=== PATIENT | female | born 1935 | race Caucasian/White ===

== ENCOUNTER 2018-08-25 08:45 | Inpatient (IN) ==
--- NOTE | 2018-08-25 09:07 | Diag Imaging Result Doc PS360 ---
EXAM: CT HEAD W/O CONTRAST 08/25/2018 HISTORY: stroke like symptoms TECHNIQUE: This exam was performed using automated exposure control, adjustment of mA or kV according to patient size, and/or use of iterative reconstruction technique. COMMENT: There are patchy periventricular and subcortical white matter lucencies present bilaterally. There are multiple lacunar lucencies present throughout both basal ganglia and thalami. There is mild generalized cerebral atrophy. There is calcification in the left vertebral artery and both internal carotid arteries. There is no evidence of mass effect, bleed, or abnormal extra-axial fluid collection. Compared to the previous study of 04/13/2018 performed at [facility], there has been no appreciable change. The visualized paranasal sinuses are clear. The calvarium is intact. IMPRESSION: Extensive chronic microvascular ischemic change. No evidence of acute intracranial disease. Electronically signed by Zacarias Garcia 08/25/2018 9:05 AM
--- NOTE | 2018-08-25 09:37 | PROVIDER DOCUMENTATION ---
HPI-General Adult - General Chief Complaint: Stroke-Like Symptoms Stated Complaint: ams Time Seen by Provider: 08/25/18 09:16 Source: patient, family, care home records Allergies/Adverse Reactions: Patient Allergies Allergy/AdvReac Type Severity Reaction Status Date / Time Sulfa (Sulfonamide Allergy Unknown Verified 06/02/18 17:38 Antibiotics) Home Medications: Home Medication List Medication Instructions Recorded Confirmed Last Taken Type ATORVAstatin [Lipitor] 1 tab PO QHS 06/02/18 08/25/18 Unknown History Acetaminophen [Arthritis Pain] 1 tab PO Q4-6H PRN PRN 06/02/18 08/25/18 Unknown History Amlodipine Besylate 1 tab PO BID 06/02/18 08/25/18 Unknown History Escitalopram [Lexapro] 1 tab PO DAILY 06/02/18 08/25/18 Unknown History Lisinopril 1 tab PO DAILY 06/02/18 08/25/18 Unknown History Metoprolol Succinate E.r. [Toprol 1 tab PO DAILY 06/02/18 08/25/18 Unknown History Xl] Polyethylene Glycol 3350 17 g PO DAILY 06/02/18 08/25/18 Unknown History Hydrocodone/APAP 5 mg/325 mg 1 ea PO Q6H PRN PRN #20 tab 08/21/18 08/25/18 Unknown Rx [Junior-5] Loperamide [Imodium] 2 mg PO PRN PRN 08/25/18 08/25/18 Unknown History Ondansetron HCl [Zofran] 4 mg PO Q4-6H PRN PRN 08/25/18 08/25/18 Unknown History Pantoprazole [Protonix] 1 tab PO BID 08/25/18 08/25/18 Unknown History - History of Present Illness -Gen Adult Nature of Presenting Problems: 83 yo female pt who presents to the ED with via EMS from a local care home with stroke like symptoms. Her restorative care technician advised that when they woke her up this morning she was unresponsive, and could not answer questions, and could not follow commands. The pt has a hx of dementia and HTN. The pt also had a fall earlier this week and has a fx of the right humerus, and is on Junior for pain. pharmacy benefits coordinator advised that the last dose was at 2 am today. The pt denies having any pain and is alert and oriented x2 (current event, and location). She was unaware of the year and guessed it to be 2001. Her restorative care technician advised that her current level of cognition is her baseline, however it has rapidly improved. She denies having any compliant of SARGENT, neck pain, visual disturbances, CP, SOB, difficulty hearing, or other complaints. Review of Systems - Adult - REVIEW OF SYSTEMS - ADULT Constitutional: reports: no symptoms reported Eyes: reports: no symptoms reported Ears, Nose, Mouth & Throat: reports: no symptoms reported Cardiovascular: reports: no symptoms reported Respiratory: reports: no symptoms reported Gastrointestinal: reports: no symptoms reported Genitourinary: reports: no symptoms reported Musculoskeletal: reports: no symptoms reported Integumentary: reports: no symptoms reported Neurological: reports: see HPI Psychiatric: reports: see HPI Past History - Adult - PAST MEDICAL HISTORY-ADULT Review of Records: reports: Old Records Reviewed, Nursing Assessment Review, Medications Reviewed, Social history reviewed & non-contributory. Cardiovascular: reports: HTN - PRIOR SURGERIES/PROCEDURES Surgical/Procedure History: reports: hysterectomy - IMMUNIZATION STATUS Childhood Immunizations: See Nurse Assessment Flu Vaccine: See Nurse Assessment - FAMILY HISTORY Family History: reviewed, not pertinent - SOCIAL HISTORY Smoking: denies Physical Exam-General - PHYSICAL EXAM-ADULT Initial Vital Signs Reviewed: Yes - CONSTITUTIONAL General Appearance: slow to respond - EYES Eyes: PERRL/EOMI, pink conjunctivae - HEAD, EARS, NOSE, MOUTH & THROAT HENMT: normocephalic/atraumatic, moist mucous membranes, normal ENT inspection - NECK Neck: non-tender, full range of motion, supple - RESPIRATORY Respiratory: chest non-tender, lungs clear, normal breath sounds, no pleuratic chest pain, no respiratory distress - CARDIOVASCULAR Cardiovascular: normal peripheral pulses, regular rate, rhythm, no edema, no gallop, no JVD, no murmur - GASTROINTESTINAL (ABDOMEN) Abdominal Exam: normal bowel sounds, non tender, soft - MUSCULOSKELETAL Peripheral Pulses: radial (R): 2+, radial (L): 2+ - SKIN Integumentary: normal color, normal turgor, warm/dry - NEUROLOGIC Neurologic: abnormal cerebellar tests. negative: no motor/sensory deficits, facial droop Progress - PLAN OF CARE/RESULTS Progress/Plan/Lab Results: Vital Signs - 8 hr 08/25/18 08:56 Temperature 98.7 F Pulse Rate 80 Respiratory Rate 16 Blood Pressure 144/76 O2 Sat by Pulse Oximetry 93 L Orders Category Date Time Status Cardiac Monitoring DIRECTED Care 08/25/18 09:29 Active Finger Stick Blood Sugar (ED) DIRECTED Care 08/25/18 09:29 Active Oxygen Therapy- ED Nursing DIRECTED Care 08/25/18 09:29 Active Saline Loc NOW Care 08/25/18 09:29 Active CHEST-PORTABLE [RAD] Stat Exams 08/25/18 09:[address] HEAD W/O CONTRAST [CT] Stat Exams 08/25/18 08:39 Completed CBC WITH ELECTRONIC DIFF [HEME] Stat Lab 08/25/18 09:29 Uncollected COMPREHENSIVE METABOLIC PANEL [CHEM] Stat Lab 08/25/18 09:29 Uncollected PROTIME WITH INR [COAG] Stat Lab 08/25/18 09:29 Uncollected PTT [COAG] Stat Lab 08/25/18 09:29 Uncollected TROPONIN T Stat Lab 08/25/18 09:29 Uncollected URINALYSIS W/POSS RFLX CULT [URINALYSIS] Stat Lab 08/25/18 09:29 Uncollected EKG [EKG] Stat Ther 08/25/18 09:29 Ordered The pt had rapid significant improvement in her symptoms, however with her symptomology I feel that it would be pertinent to admit the patient for observation. The hospitalist was consulted and agreed to admit the pt. I discussed this with the pt and her brother and they agreed to the plan. Result Diagrams: 08/25/18 09:30 08/25/18 09:30 Departure - Departure Date of Disposition Decision: 08/25/18 Time of Disposition Decision: 11:48 DIAGNOSIS: Stroke-like symptom, TIA (transient ischemic attack) Disposition: ADMITTED INPATIENT 09 Certified Medical Emergency: Emergent Condition: Stable - Critical Care Note This patient required my direct & personal management of CC.: No Attestation - Physician/ DOREEN Attestation Patient care was provided by Advanced Practice Provider:: Yes Advanced Practice Provider:: Salazar Muñoz Advanced Practice Provider documentation review:: The Mid-level provider documentation, treatment plan and medical decision making was reviewed by the physician who agrees with all treatment and medical decision making by the MLP. The physician spent face to face time with patient:: No Advanced Practice Provider documentation review:: Supervising physician onsite and consulted in the evaluation and care of this patient. The physician did not have a face to face encounter with the patient. - NIH Stroke Scale NIH Type: Initial Evaluation Level of Consciousness: 1-Drowsy, but arousable with minimal stimulation LOC Questions (ask month and age): 2-Both Incorrect LOC Commands (ask to open & close eyes;make a fist, let go): 0-Obeys Both Correctly Best Gaze (horizontal eye movement): 0-Normal Visual (use finger movement, counting or visual threat): 0-No Visual Loss Facial Palsy (show teeth or raise eyebrows & close eyes tght: 0-Symmetrical Movement Motor Function-left arm: 0-Normal Motor Function-right arm: 0-Untestable Motor Function-left le-Normal Motor Function-right le-Normal Limb Ataxia(tfvewf-rufw-aegllm, or heel to pettit): 1-Present in one limb Sensory(pin prick to face,arms,trunk,legs-compare side/side): 0-No Ataxia Best Language(name item/read sentence.Ex-Down to Earth): 0-No Aphasia Dysarthria(Pt read words or say words Ex.Mama,Tip-Top,Thanks: 0-Normal Articulation Extinction and Inattention: 0-Normal NIH Total Score: 3
[2018-08-25 09:46] LABS: BASO# 0.02 X1000 (0.0-0.2); BASO% 0.3 % (0.0-0.8); EOS# 0.17 X1000 (0.0-0.7); EOS% 2.4 % (0.0-10.0); HEMATOCRIT 32.9 % (37.0-47.0); HEMOGLOBIN 10.3 g/dL (12.0-16.0); IMM GRAN# 0.02 X1000 (0.0-0.04); IMM GRAN% 0.3 % (0.0-0.5); LYMPH# 1.68 X1000 (1.2-3.4); LYMPH% 23.2 % (20.5-51.1); MCH 25.9 PG (27-31); MCHC 31.3 g/dL (33-37); MCV 82.7 FL (81-99); MONO# 0.73 X1000 (0.11-0.59); MONO% 10.1 % (1.7-9.3); MPV 10.1 FL (7.4-10.4); NEUT# 4.61 X1000 (1.4-6.5); NEUT% 63.7 % (42.2-75.2); PLT 339 X1000 (130-400); RBC 3.98 XMIL (4.2-5.4); RDW 14.4 % (11.5-14.5); WBC 7.23 X1000 (4.8-10.8)
[2018-08-25 09:52] LABS: INR 0.9; PROTIME 12.9 Seconds (11.0-16.0)
[2018-08-25 09:53] LABS: PTT 32.1 Seconds (22.3-41.8)
--- NOTE | 2018-08-25 09:58 | Diag Imaging Result Doc PS360 ---
EXAM: CHEST-PORTABLE 08/25/2018 HISTORY: stroke like symptoms TECHNIQUE: AP portable upright at 0940 COMMENT: There is an apparent hiatal hernia. There is blunting of the left costophrenic angle and ill-defined opacity in the left lower lobe. This has actually improved since 06/03/2018. There is some fibrosis in the right base which has not changed. IMPRESSION: Improved atelectasis or pneumonia left lower lobe. Electronically signed by Zacarias Garcia 08/25/2018 9:56 AM
[2018-08-25 10:01] LABS: AGAP 11; ALB/GLOB RATIO 1.1; ALBUMIN 3.4 g/dL (3.5-5.0); ALKALINE PHOSPHATASE 94 U/L (32-104); BUN 14 mg/dL (8-22); CALCIUM 8.6 mg/dL (8.8-10.2); CHLORIDE 101 mmol/L (98-107); COSMO 277; CREATININE 0.6 mg/dL (0.5-0.9); ESTIMATED GFR > 60; GLUCOSE 107 mg/dL (70-104); GOT 17 U/L (10-30); GPT 13 U/L (10-36); POTASSIUM 4.1 mmol/L (3.5-5.1); SODIUM 138 mmol/L (136-145); TCO2 26 mmol/L (25-35); TOTAL BILIRUBIN 0.82 mg/dL (0.20-1.00); TOTAL PROTEIN 6.6 g/dL (6.3-8.3)
--- NOTE | 2018-08-25 10:28 | ED EKG INTERP ---
This chart was entered by Francisca Faustin Scribe, acting as scribe for Ahsan Singh MD. EKG Interpretation - EKG Time of EKG reading by physician:: 09:11 EKG Read and Signed by:: Ahsan Singh EKG Interpretation (*Must complete 3 of following elements*): Abnormal Rate: 82 Rhythm: NSR [place]: normal QRS: other (inferior infarct) GA Interval: normal ST Wave: normal Attestation - Physician/ DOREEN Attestation Patient care was provided by Advanced Practice Provider:: Yes Advanced Practice Provider:: Salazar Muñoz Advanced Practice Provider documentation review:: The Mid-level provider d ocumentation, treatment plan and medical decision making was reviewed by the physician who agrees with all treatment and medical decision making by the P. The physician spent face to face time with patient:: No Advanced Practice Provider documentation review:: Supervising physician onsite and consulted in the evaluation and care of this patient. The physician did not have a face to face encounter with the patient. This chart was documented by the indicated scribe, (Francisca Faustin Scribe) and accurately reflects the services I performed and decisions made by me, Ahsan Singh MD, as attested by the provider's signature.
[2018-08-25 10:42] LABS: URINE SOURCE CATH
[2018-08-25 10:45] LABS: BILIRUBIN URINE NEGATIVE (NEGATIVE); BLOOD URINE NEGATIVE (NEGATIVE); COLOR YELLOW; GLUCOSE URINE NEGATIVE (NEGATIVE); KETONE URINE NEGATIVE (NEGATIVE); LEUKOCYTES URINE NEGATIVE (NEGATIVE); NITRITE URINE NEGATIVE (NEGATIVE); PH URINE 7.5; PROTEIN URINE NEGATIVE (NEGATIVE); SP GRAVITY URINE 1.004; TURBIDITY URINE CLEAR (CLEAR); UR EPITHELIAL CELLS <10 /HPF (<10); URINE BACTERIA NEGATIVE /HPF; URINE RBC <10 /HPF (<10); URINE WBC <10 /HPF (<10); UROBILINOGEN URINE NORMAL (NORMAL)
[2018-08-25] MEDS ORDERED: NS 1,000 ML IV ONE (13:24)
[2018-08-25] MEDS ORDERED: IMODIUM PO PRN (13:58)
[2018-08-25] MEDS: ASPIRIN PO SCH (14:11)
[2018-08-25 14:47] LABS: IRON SATURATION 11 %; TIBC 214 ug/dL; TOTAL IRON 24 ug/dL (49-151); UNBOUND IRON 190 ug/dL (112-346)
[2018-08-25 15:10] LABS: FREE T4 1.44 ng/dL (0.93-1.70); TSH 0.59 uIUmL (0.27-4.20)
--- NOTE | 2018-08-25 16:36 | HISTORY AND PHYSICAL ---
CHIEF COMPLAINT: Altered mental status. HISTORY OF PRESENT ILLNESS: Ms. Carvajal is an 83-year-old female with a history of hypertension, hyperlipidemia, dementia, recent right humeral fracture, who presents from local assisted living for altered mental status. The patient herself cannot give any type of detail secondary to neuro status. Her brother at the bedside is only able to answer limited questions. Apparently she had a period of unresponsiveness this morning which was concerning enough that she was sent to the ER for evaluation. In the ER, head CT was done which was deemed negative for acute process. Per the ER provider, there was initially some left upper extremity weakness that has since resolved. Her brother states that she was possibly getting dressed with assistance of an aide at her care home facility, and she became unresponsive; however, he was not there and did not witness, and it is unclear how long she was unconscious if at all. She is hemodynamically stable now, currently without any focal deficits, but she is quite confused and unable to answer any orientation question correctly. We will admit her for further treatment and evaluation. PAST MEDICAL HISTORY: 1. Recent right humeral fracture, nonsurgical, followed by Dr. Hahn, status post fall. 2. Dementia. 3. Hypertension. 4. Hyperlipidemia. 5. GERD. 6. Depression. 7. Iron deficiency anemia. 8. Recent GI bleed in 05/2018. PAST SURGICAL HISTORY: Hysterectomy. SOCIAL HISTORY: No tobacco, alcohol or drug use. She is single and has no children. Brother is at the bedside. FAMILY HISTORY: Noncontributory. REVIEW OF SYSTEMS: Very limited review of systems obtained and found to be negative with the exception of the HPI. ALLERGIES: Sulfonamides. HOME MEDICATIONS: Norvasc 5 mg b.i.d., acetaminophen every 4 to 6 hours as needed, Imodium 2 mg as needed for diarrhea, Lexapro 10 mg daily, Lipitor 40 mg at bedtime, lisinopril 20 mg daily, polyethylene glycol 17 g daily, Protonix 40 mg p.o. b.i.d., metoprolol XL 50 mg daily, Zofran 4 mg p.o. at bedtime, [place] as needed for pain. PHYSICAL EXAMINATION: VITAL SIGNS: Blood pressure is 143/45, heart rate 77, respiratory rate is 18, O2 saturation is 99% on room air. Temperature is 97.8. GENERAL: A well-developed, well-nourished 83-year-old female lying in hospital bed in no acute distress. NEUROLOGICAL: She is disoriented but follows commands without focal deficits. HEENT: Head is atraumatic and normocephalic. Pupils are equal, round and reactive to light. Oral mucosa is moist. NECK: Trachea is midline. There is no JVD. CHEST: Clear to auscultation bilaterally. CARDIOVASCULAR: Regular rate and rhythm. S1 and S2 are noted. No murmurs. GASTROINTESTINAL: Soft, nondistended and nontender. Bowel sounds are positive. EXTREMITIES: No edema. Pulses 1+ bilaterally. DIAGNOSTIC DATA: Head CT shows chronic changes, nothing acute. Chest x-ray with apparent hiatal hernia, blunting of the left costophrenic angle, ill-defined opacity in the left lower lobe, this is actually improved since 06/03/2018, some fibrosis in the right base. EKG normal sinus rhythm without acute ST or T abnormalities. WBC is 7.23, hemoglobin 10.3, hematocrit 32.9, platelet count 339. INR is 0.9. Sodium is 138, potassium 4.1, chloride 101, CO2 is 26, anion gap 11, BUN is 14, creatinine 0.6, glucose 107, calcium 8.6. LFTs negative. Albumin 3.4, lactic acid 1. UA negative. ASSESSMENT AND PLAN: 1. Encephalopathy. While TIA or stroke certainly could be a possibility, all of her symptoms have essentially resolved. We will admit her and do a stroke workup. We will check echocardiogram and carotids, monitor neuro status and allow for permissive hypertension as well as make sure she is getting aspirin daily. If symptoms have returned or worsened by Monday, we will check an MRI and consult Neuro. 2. Essential hypertension. Please see number 1, allowing for permissive hypertension, so we will hold her antihypertensives for now. 3. Hyperlipidemia. Continue statin. 4. History of esophagitis, gastric ulcers and GI bleed in 05/2018. Continue her Protonix. Her hemoglobin and hematocrit are stable. We will check iron studies as she is anemic. Her anemia has improved slightly since last admission. 5. DVT prophylaxis with SCDs. 6. The patient is do not resuscitate level 1 per brother. Further recommendations to follow. Dictated by BAILEY Farfan for Aubrie Cueto MD cc: BAILEY Farfan MD [facility]
--- NOTE | 2018-08-25 18:15 | ECHO REPORT ---
ORDER DATE: 08/25/2018 ECHOCARDIOGRAPHIC MEASUREMENTS: 1. Interventricular septum 1.2. 2. Left ventricular posterior wall 1.2. 3. Diastolic diameter 5.9. 4. Left atrium 3.9. 5. Aorta 3.2. SUMMARY: 1. Aortic valve leaflets were trileaflet. 2. Tricuspid valve was normal. 3. Pulmonic valve was normal. 4. There is trace pulmonary regurgitation. 5. Mitral valve leaflets are normal. There is mild mitral annular calcification. 6. Left atrium was mildly enlarged. 7. There is mild diastolic dysfunction. 8. There is mild tricuspid regurgitation. Peak velocity across the tricuspid valve was 3.2 m/sec. 9. Pulmonary artery systolic pressure of 50 mmHg. 10. Normal left ventricular cavity size. Concentric left ventricular hypertrophy. 11. Estimated ejection fraction of 65%. 12. There is no pericardial effusion or obvious intracardiac mass or thrombus seen. 13. There is no aortic stenosis or regurgitation. cc: MD Frederic Worrell CRNP
[2018-08-25] MEDS: LIPITOR PO SCH (22:17)
[2018-08-25] MEDS: PROTONIX PO SCH (22:17)
[2018-08-26 07:50] LABS: BASO# 0.03 X1000 (0.0-0.2); BASO% 0.6 % (0.0-0.8); EOS# 0.11 X1000 (0.0-0.7); EOS% 2.3 % (0.0-10.0); HEMATOCRIT 30.4 % (37.0-47.0); HEMOGLOBIN 9.5 g/dL (12.0-16.0); LYMPH# 0.93 X1000 (1.2-3.4); LYMPH% 19.7 % (20.5-51.1); MCHC 31.3 g/dL (33-37); MCV 83.3 FL (81-99); MONO# 0.49 X1000 (0.11-0.59); MONO% 10.4 % (1.7-9.3); MPV 9.8 FL (7.4-10.4); NEUT# 3.16 X1000 (1.4-6.5); PLT 315 X1000 (130-400); RBC 3.65 XMIL (4.2-5.4); RDW 14.5 % (11.5-14.5); WBC 4.72 X1000 (4.8-10.8)
[2018-08-26 08:20] LABS: AGAP 10; BUN 9 mg/dL (8-22); CHLORIDE 103 mmol/L (98-107); COSMO 275; CREATININE 0.5 mg/dL (0.5-0.9); ESTIMATED GFR > 60; GLUCOSE 108 mg/dL (70-104); MAGNESIUM 1.9 mg/dL (1.5-2.7); POTASSIUM 3.7 mmol/L (3.5-5.1); SODIUM 138 mmol/L (136-145); TCO2 25 mmol/L (25-35)
[2018-08-26] MEDS: PROTONIX PO SCH ×2 (10:01→20:48)
[2018-08-26] MEDS: LEXAPRO PO SCH (10:02)
[2018-08-26] MEDS: ASPIRIN PO SCH (10:02)
[2018-08-26] MEDS: MIRALAX PO SCH (10:02)
--- NOTE | 2018-08-26 11:51 | Diag Imaging Result Doc PS360 ---
EXAM: CHEST-PORTABLE 08/26/2018 HISTORY: dyspnea TECHNIQUE: AP portable erect at 1141 COMMENT: Compared to 08/25/2018 the atelectatic changes in both lung bases have improved in the lungs are better expanded. There is less blunting of the left costophrenic angle. IMPRESSION: Improved atelectasis and left pleural effusion. Electronically signed by Zacarias Garcia 08/26/2018 11:49 AM
[2018-08-26] MEDS: NORCO-5 PO PRN ×2 (12:18→20:47)
--- NOTE | 2018-08-26 19:03 | PROGRESS NOTE ---
DATE: 08/26/2018 SUBJECTIVE: The patient is awake and alert. The family is present at the bedside. She has no complaints at this time. OBJECTIVE: Vital Signs: Temperature 98.1, blood pressure 130/44, heart rate 74, respirations 18, O2 saturation is 94% on 2L nasal cannula. General: This is an elderly female, lying in bed, in no acute distress. Heart: S1, S2 normal, regular rate and rhythm. Lungs: Clear to auscultation bilaterally. Abdomen: Positive bowel sounds. Soft, nontender, nondistended. Extremities: No edema, no cyanosis. Neurological: The patient is awake, but confused. DIAGNOSTIC STUDIES: White blood cell count is 4.7, hemoglobin 9.4, hematocrit 30, platelets 315,000. Sodium 138, potassium 3.7, chloride 103, creatinine 0.4, glucose 108. Chest x-ray shows atelectasis. ASSESSMENT AND PLAN: 1. Encephalopathy. The patient is more awake and alert today. The head CT was unremarkable. We will order an MRI to be done tomorrow. We will also consult with the neurologist. 2. Left pleural effusion. Stable. 3. Situational depression. Continue on Lexapro. 4. Constipation. Continue on MiraLAX. 5. Deep vein thrombosis (DVT) prophylaxis. We will start the patient on Lovenox. DISPOSITION: We will consult Physical Therapy. The patient may require inpatient rehabilitation placement. cc: Aubrie Cueto MD MTDD
[2018-08-26] MEDS: LIPITOR PO SCH (20:47)
[2018-08-27 08:24] LABS: BASO# 0.03 X1000 (0.0-0.2); BASO% 0.6 % (0.0-0.8); EOS# 0.13 X1000 (0.0-0.7); EOS% 2.7 % (0.0-10.0); HEMOGLOBIN 9.9 g/dL (12.0-16.0); LYMPH% 24.6 % (20.5-51.1); MCH 26.4 PG (27-31); MCHC 31.9 g/dL (33-37); MCV 82.7 FL (81-99); MONO# 0.51 X1000 (0.11-0.59); MONO% 10.5 % (1.7-9.3); MPV 10.5 FL (7.4-10.4); NEUT# 3.01 X1000 (1.4-6.5); NEUT% 61.6 % (42.2-75.2); PLT 351 X1000 (130-400); RBC 3.75 XMIL (4.2-5.4); RDW 14.7 % (11.5-14.5); WBC 4.88 X1000 (4.8-10.8)
[2018-08-27 08:37] LABS: AGAP 10; BUN 11 mg/dL (8-22); CALCIUM 8.6 mg/dL (8.8-10.2); CHLORIDE 105 mmol/L (98-107); COSMO 281; CREATININE 0.6 mg/dL (0.5-0.9); ESTIMATED GFR > 60; GLUCOSE 98 mg/dL (70-104); MAGNESIUM 2.1 mg/dL (1.5-2.7); POTASSIUM 4.1 mmol/L (3.5-5.1); SODIUM 141 mmol/L (136-145); TCO2 26 mmol/L (25-35)
[2018-08-27] MEDS: PROTONIX PO SCH ×2 (08:48→20:16)
[2018-08-27] MEDS: ASPIRIN PO SCH (08:48)
[2018-08-27] MEDS: NORCO-5 PO PRN ×2 (08:48→20:18)
[2018-08-27] MEDS: LEXAPRO PO SCH (08:49)
[2018-08-27] MEDS: LOVENOX SUBQ SCH (08:49)
[2018-08-27] MEDS: MIRALAX PO SCH (08:49)
--- NOTE | 2018-08-27 08:57 | EKG Report ---
Test Performed on : 08/25/2018 09:11:06 AM Test Reason : Stroke like symptoms Blood Pressure : / mmHG Vent. Rate : 082 BPM Atrial Rate : 082 BPM P-R Int : 152 ms QRS Dur : 084 ms QT Int : 376 ms P-R-T Axes : 032 -07 -10 degrees QTc Int : 439 ms Normal sinus rhythm. Inferior infarct , age undetermined Abnormal ECG When compared with ECG of 05-JUN-2018 16:09, Inverted T waves have replaced nonspecific T wave abnormality in Inferior leads Nonspecific T wave abnormality now evident in Anterolateral leads Unconfirmed Result
--- NOTE | 2018-08-27 12:29 | CONSULTATION ---
DATE OF CONSULTATION: 08/27/2018 REASON FOR CONSULTATION: Altered mental status. HISTORY OF PRESENT ILLNESS: This is an 83-year-old female with history of hypertension, hyperlipidemia and reported dementia, who was admitted for altered mental status. History is from one of the patient's sitters via phone conversation. She was present during the event in question. She states that the patient was sitting on the commode, and another nurse aide was dressing the patient with a shirt. She was having a difficult time getting the shirt on. The patient has recent right humeral fracture and was in visible pain with the attempt to put her right arm into the relatively small shirt. She was hollering out in pain. They proceeded to move her to a wheelchair, as she seemed to be trying to pass out. She was diaphoretic and pale. She was poorly responsive and generally weak. She began to recover when EMS arrived on the scene.There was not report of focal weakness or focal neurologic symptoms. Brother at bedside states that while here in the hospital, she has had some sundowning starting in the afternoon time. Other than that, he cannot tell me if she is at her baseline. There was concern that she may have had some confusion while here, and I am not certain if this was related to sundowning or not. PAST MEDICAL HISTORY: 1. Hypertension. 2. Hyperlipidemia. 3. Possible stroke a few months ago versus chronic findings. I believe this was on imaging performed at [facility]. Brother states they were told she may have had a stroke at some point. 4. Right humeral fracture status post fall. 5. GERD. 6. Depression. 7. Iron deficiency anemia. 8. Recent GI bleed in 05/2018. 9. Hysterectomy. SOCIAL HISTORY: She was living alone in the [facility] but was admitted to the hospital after being found down a couple of months ago and has since been in rehab facilities. She is not . No tobacco, alcohol or illicits. 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 FAMILY HISTORY: Her brother has had multiple strokes. ALLERGIES: Listed to sulfa. HOME MEDICATIONS: Reviewed. No antiplatelet is listed. CURRENT MEDICATIONS: Aspirin 325 mg daily. REVIEW OF SYSTEMS: A balance of 12 was conducted and is otherwise negative except for that detailed in the HPI. PHYSICAL EXAMINATION: Vital signs: She has been afebrile. Blood pressure is 144/76 on admission, current 169/57. Pulse is 60s to 70s. Respirations 16, 100% on room air. Ms. Carvajal is supine in bed, awake and alert. She regards. She is attentive. She is slow in answering questions but does so appropriately. She is soft spoken. She is oriented to location, year, month, day of the week and the president. She did not know today's date. No language disturbance on bedside testing. Follows simple commands consistently. Left right and digit distinction preserved. Pupils are equal, 3 mm, round and reactive to bright light. Gaze is conjugate. Ocular movements are full, but on initial testing, I could not get her to cross midline leftward. With further coaching and different technique, I was able to get her to spontaneously do that, however. Upgaze was a little bit limited. Her blink to threat was not consistent. I could not get her to perform direct confrontational visual field testing. Face is symmetric with equal activation. Facial sensation reported intact. She can hear. Tongue is midline. Palate elevates symmetrically. Her right arm is painful and held close to her chest. Global President strength on the right is symmetric to that on the left. Her strength in the left arm and lower extremities is about a 4/5 and equal, without obvious deficit. I, of course, could not test her right upper extremity due to pain. She responds to noxious stimuli in all 4 extremities equally. Reflexes are 1+ at the wrists and biceps bilaterally. I could not elicit ankle jerks, though she was tense. One plus patellar jerks. No clonus. Plantar response is downgoing. Finger to nose is intact on the left. She could not perform on the right. Rapid alternating movements are somewhat slow but symmetric. I did not test her gait. DIAGNOSTIC DATA: Head CT noncontrast on admission personally reviewed. No acute findings. She does have advanced chronic microvascular ischemic changes noted. There is also mild to moderate generalized cerebral atrophy. Echocardiogram did not show any obvious mass or thrombus, EF of 65%. Left atrium mildly enlarged. Normal white count, coags, sodium, BUN and creatinine. Blood sugar is 98 to 108. Calcium 8.6. AST and ALT normal. Triglycerides 62, cholesterol 101, LDL is 65, HDL is 32. Urinalysis clean. ASSESSMENT AND PLAN: An 83-year-old female with hypertension and hyperlipidemia with what sounds to be presyncopal event related to pain, likely vasovagal. There may have been some confusion while hospitalized since that time, though I did not detect any evidence of encephalopathy at my time at the bedside. It may be related to sundowning, but I am not sure about the timing. Maybe it has just cleared up. She has gone for MRI to rule out stroke. I would continue telemetry monitoring while here. Thank you for the consult. cc: Brandi Ely MD MTDD
--- NOTE | 2018-08-27 13:59 | CONSULTATION ---
DATE OF CONSULTATION: 08/27/2018 HISTORY OF PRESENT ILLNESS: This 83-year-old female with a history of high blood pressure, hyperlipidemia, and reported dementia. She was admitted for altered mental status recently. Patient history obtained from at bedside. The patient was [facility] [place] [facility] right shoulder pain. It was found that she had a right proximal humerus fracture. PAST MEDICAL HISTORY: 1. Hypertension. 2. Hyperlipidemia. 3. Possible stroke. 4. Right humeral fracture status post fall. 5. GERD. 6. Depression. 7. Iron deficient anemia. 8. GI bleed. 9. Hysterectomy. SOCIAL HISTORY: The patient lives alone in [place]. She has currently been rehab. She denies alcohol, tobacco, or illicit drug use. FAMILY HISTORY: Her brother had multiple strokes. ALLERGIES: She is allergic to sulfa. CURRENT MEDICATIONS: Aspirin 325 mg daily. REVIEW OF SYSTEMS: A 12-point review of systems was conducted with the patient and negative except for what is listed in HPI. PHYSICAL EXAM: Vital Signs: Vital signs have been stable. The patient has been afebrile. General: Ms Carvajal is sitting in a bed awake and alert, eating her dinner. She answers questions. She is oriented to location, day and year. She also knows president. The patient follows commands. HEENT: The head is atraumatic, normocephalic. Mucous membranes are moist. Neck: Supple. Chest: There is equal chest expansion, rise and fall. Gastrointestinal: Abdomen is soft, nontender. Cardiovascular: Regular rate and rhythm. Extremities: The right upper extremity is slightly swollen. She is in a sling. There is good radial pulse. There is good capillary refill. There is good care specialist strength. DIAGNOSTIC DATA: Reviewing her current chest x-ray shows that the right proximal humerus has good alignment. We will follow her and re-x-ray the right upper extremity in about a week. ASSESSMENT: Right proximal humerus fracture. PLAN: Plan on monitoring Ms. Carvajal at this time. She can continue the sling and swath. She needs to follow up in the clinic in about a week for a followup x-ray. We will check on her then. Thank you again for consult. Dictated by BAILEY Banegas for Homer Hahn MD cc: BAILEY Banegas MD
--- NOTE | 2018-08-27 18:21 | PROGRESS NOTE ---
DATE: 08/27/2018 SUBJECTIVE: The patient is awake and alert this morning. No acute events noted overnight. Her brother is present at the bedside. OBJECTIVE: Vital Signs: Temperature 98.2, blood pressure 148/58, heart rate 73, respirations 16, O2 sats 97% on 2 L nasal cannula. General: This is a chronically ill-appearing elderly female lying in bed in no acute distress. HEENT: Head, normocephalic atraumatic. Heart: S1, S2 normal. Regular rate and rhythm. Lungs: Clear to auscultation bilaterally. No wheezing. No rales. Abdomen: Positive bowel sounds. Soft, nontender, nondistended. Extremities: No edema, no cyanosis. Neurologic: The patient is alert and oriented x 3. LABS: Hemoglobin 9.9, hematocrit 31, platelets 351,000. Sodium 141, potassium 4.1, chloride 105, CO2 26, BUN 11, creatinine 0.6, glucose 98. ASSESSMENT AND PLAN: 1. Encephalopathy. This appears to be resolving. We will continue to monitor the patient closely for improvement. Neurology is following. 2. Right proximal humerus fracture. Management as per the orthopedic surgeon. 3. Anemia. Stable. 4. Constipation. Continue on MiraLAX. Will also add Colace. 5. Situational depression. Continue on Lexapro. 6. DVT prophylaxis. Continue on Lovenox. 7. Disposition. The patient is from an assisted living facility. We are waiting on a physical therapy evaluation to determine whether the patient can return there or needs inpatient rehab. cc: Aubrie Cueto MD
[2018-08-27] MEDS: LIPITOR PO SCH (20:16)
[2018-08-28 08:33] LABS: AGAP 12; BUN 13 mg/dL (8-22); CALCIUM 8.4 mg/dL (8.8-10.2); CHLORIDE 101 mmol/L (98-107); COSMO 272; CREATININE 0.5 mg/dL (0.5-0.9); ESTIMATED GFR > 60; GLUCOSE 103 mg/dL (70-104); MAGNESIUM 2.1 mg/dL (1.5-2.7); POTASSIUM 3.9 mmol/L (3.5-5.1); SODIUM 136 mmol/L (136-145); TCO2 23 mmol/L (25-35)
[2018-08-28] MEDS: PROTONIX PO SCH ×2 (09:21→20:02)
[2018-08-28] MEDS: ASPIRIN PO SCH (09:21)
[2018-08-28] MEDS: LOVENOX SUBQ SCH (09:22)
[2018-08-28] MEDS: LEXAPRO PO SCH (09:22)
[2018-08-28] MEDS: MIRALAX PO SCH (09:22)
[2018-08-28 09:24] LABS: BASO# 0.03 X1000 (0.0-0.2); BASO% 0.5 % (0.0-0.8); EOS# 0.08 X1000 (0.0-0.7); EOS% 1.3 % (0.0-10.0); HEMATOCRIT 33.2 % (37.0-47.0); HEMOGLOBIN 10.6 g/dL (12.0-16.0); LYMPH% 24.2 % (20.5-51.1); MCH 26.3 PG (27-31); MCHC 31.9 g/dL (33-37); MCV 82.4 FL (81-99); MONO# 0.46 X1000 (0.11-0.59); MONO% 7.4 % (1.7-9.3); MPV 9.9 FL (7.4-10.4); NEUT# 4.13 X1000 (1.4-6.5); NEUT% 66.6 % (42.2-75.2); PLT 375 X1000 (130-400); RBC 4.03 XMIL (4.2-5.4); RDW 14.8 % (11.5-14.5)
--- NOTE | 2018-08-28 11:11 | Carotid Study ---
DATE: 08/25/2018 PROCEDURE: Bilateral carotid ultrasound study. REQUESTING PHYSICIAN: Jb Soto MD. INTERPRETING PHYSICIAN: Johann Kraft MD. TECH: [place]. INDICATIONS: 1. TIA. 2. Fall. EQUIPMENT: [employer] E9 ultrasound system with a 9LD transducer. OBSERVED DATA RIGHT LEFT Brachial Blood Pressure Carotid Pulse Bruits: Carotid/Sub DIAGRAM OF ULTRASOUND IMAGING R L RIGHT INT EXT INT EXT LEFT Johan (cm/s) Johan (cm/s) Subclavian 164/0 Subclavian 115/0 CCA Proximal 78/0 CCA Proximal 90/3 CCA Distal 78/8 CCA Distal 90/4 Bulb 78/0 Bulb 79/0 ICA Proximal 88/12 ICA Proximal 71/3 ICA Mid 87/11 ICA Mid 48/3 ICA Distal 93/8 ICA Distal 54/8 ECA 110/6 ECA 110/7 Vertebral 43/0 A Vertebral 83/8 A ICA/CCA Ratio 1.19 ICA/CCA Ratio 0.80 % Stenosis 0-39% % Stenosis 0-39%. FINDINGS: Minimal atherosclerosis at this time does not produce a hemodynamically significant flow-limiting stenosis. Both vertebral arteries were antegrade flow. INTERPRETATION: By strict velocity criteria, no hemodynamically significant flow-limiting stenosis noted. cc: MD Frederic Roger CRNP
--- NOTE | 2018-08-28 12:49 | Diag Imaging Result Doc PS360 ---
EXAM: MRI BRAIN W/O CONTRAST INDICATION: Encephalopathy COMPARISON: CT head dated 08/25/2018. No prior MRIs available for comparison. FINDINGS: There is no evidence of acute infarct. There is fairly extensive diffuse brain atrophy. There is extensive T2/FLAIR hyperintensity in the periventricular and subcortical white matter suggesting advanced microangiopathy. There is no discrete intracranial mass, mass effect, or intracranial hemorrhage. The surrounding soft tissues and bony structures are essentially unremarkable. IMPRESSION: Diffuse brain atrophy and suggestion of advanced white matter microangiopathy. No evidence of acute intracranial pathology. Electronically signed by Homer Spann 08/28/2018 12:46 PM
--- NOTE | 2018-08-28 14:34 | PROGRESS NOTE ---
DATE: 08/28/2018 SUBJECTIVE: No major overnight events. The patient is eager for discharge. OBJECTIVE: She remains afebrile. Blood pressure 149/52, pulse 60s to 80s. Ms. Carvajal is supine in bed, awake, alert, and reasonably oriented. She does not know today's date. No language disturbance. Follows simple commands. Face is symmetric with equal activation. She can hear. Her right arm is now in a sling and she guards that. Otherwise, no obvious focal deficit regarding strength. DIAGNOSTICS: MRI of the brain, noncontrasted, personally reviewed, no acute findings. There is moderate to severe generalized cerebral atrophy. There is also advanced white matter microangiopathy. White count normal. Sodium normal. BUN and creatinine normal. ASSESSMENT AND PLAN: Event that was described to me yesterday by a witness, clinically sounds like vasovagal type presyncopal event. There is a possibility that she may have had some prolonged confusion, which has been clearing up in the hospital vs behavioral change related to dementia. I will go ahead and order a routine EEG. I suspect she is probably at her baseline but I do not know that for certain, as I cannot get an accurate account of that from her brother, who has been at the bedside. cc: Brandi Ely MD MTDD
--- NOTE | 2018-08-28 17:19 | PROGRESS NOTE ---
DATE: 08/28/2018 SUBJECTIVE DATA: Ms. Carvajal reports that her right shoulder is still hurting. She reports her pain is 3/10 at this time. She reports that she cannot move the arm normally. OBJECTIVE DATA: There is some mild swelling to the right upper extremity. There is good radial pulse. There is good range of motion to shoulder. There is mild moderate tenderness to the proximal humerus. There is good capillary refill. Patient is in a sling and swath. ASSESSMENT: Right proximal humeral fracture. PLAN: Will plan on re-x-raying the right shoulder in about a week or so when the patient gets out of hospital. She follow up with Dr. Hahn in the clinic in about a week or 2. Dictated by BAILEY Banegas for Homer Hahn MD cc: BAILEY Banegas MD
--- NOTE | 2018-08-28 18:06 | PROGRESS NOTE ---
DATE: 08/28/2018 SUBJECTIVE: The patient resting on bed. She would like to be discharged. OBJECTIVE: Vital Signs: As follows: Temperature 98.6, pulse 79, respirations 16, blood pressure is 131/64, oxygen 98%. HEENT: Atraumatic, normocephalic. Cardiovascular: S1, S2. Respiratory: Has evidence of good air entry bilaterally. Abdomen: Soft, nontender. No masses felt. Extremities: No evidence of edema. Central Nervous System: No obvious focal deficits noted. LABS: As follows: WBC 6.3, hematocrit is 33.2, with a platelet count of 375,000. Sodium is 136, potassium 3.9, chloride is 101, bicarb 23, BUN is 13, creatinine 0.5. ASSESSMENT AND PLAN: 1. Encephalopathy. The patient's sensorium seems to be clear during my evaluation. We will continue to follow up on her mental status. The patient has been seen by the Neurology team. 2. Right proximal femoral fracture. The patient was seen by the Orthopedic team and the plan is to have a repeat x-ray in the outpatient. 3. Anemia. Follow up on hemoglobin, hematocrit. Transfuse PRBCs as needed. 4. Depression. Continue Lexapro. 5. Disposition. The patient can be discharged to assisted living facility. 6. DVT prophylaxis. Lovenox. cc: Jb Soto MD
[2018-08-28] MEDS: NORCO-5 PO PRN (19:32)
[2018-08-28] MEDS: LIPITOR PO SCH (20:02)
[2018-08-29 07:28] LABS: AGAP 11; BUN 12 mg/dL (8-22); CALCIUM 8.9 mg/dL (8.8-10.2); CHLORIDE 103 mmol/L (98-107); COSMO 279; CREATININE 0.6 mg/dL (0.5-0.9); ESTIMATED GFR > 60; GLUCOSE 98 mg/dL (70-104); MAGNESIUM 2.1 mg/dL (1.5-2.7); POTASSIUM 3.6 mmol/L (3.5-5.1); SODIUM 140 mmol/L (136-145); TCO2 26 mmol/L (25-35)
[2018-08-29] MEDS: NORCO-5 PO PRN ×2 (08:53→20:10)
[2018-08-29] MEDS: LOVENOX SUBQ SCH (08:54)
[2018-08-29] MEDS: LEXAPRO PO SCH (08:54)
[2018-08-29] MEDS: PROTONIX PO SCH ×2 (08:54→20:10)
[2018-08-29] MEDS: MIRALAX PO SCH (08:54)
[2018-08-29] MEDS: ASPIRIN PO SCH (08:54)
--- NOTE | 2018-08-29 09:13 | EEG REPORT ---
DATE: 08/28/2018 REFERRING: Brandi Ely MD. HEAT TREATING OPERATOR: Claudia Coronel. BACKGROUND INFORMATION AND TECHNIQUE: This is a digitally recorded routine EEG with video. HISTORY: An 83-year-old female patient with a period of poor responsiveness. An EEG is ordered to detect evidence of seizures. EEG FINDINGS: A posterior dominant alpha rhythm is not seen. The background at maximal alertness consist of mixed alpha, beta, and theta range frequencies. No definite persistent focal slowing. No epileptiform discharges. No seizures. Hyperventilation is not performed. Photic stimulation does not alter the record. The patient becomes drowsy but stage II sleep is not seen. EKG demonstrates regular interval.s IMPRESSION AND CLINICAL CORRELATION: Abnormal routine EEG due to mild diffuse slowing suggestive of a mild nonspecific encephalopathy. No epileptiform discharges and no seizures seen on the current study. This does not rule out an underlying seizure disorder. cc: Brandi Ely MD
--- NOTE | 2018-08-29 13:06 | PROGRESS NOTE ---
DATE: 08/29/2018 SUBJECTIVE: The patient is resting in bed. She is eagerly wanting to be discharged. OBJECTIVE: Vital signs: Temperature 98.5 degrees, pulse 79, respirations 18, blood pressure is 141/47, and oxygen saturation 98%. HEENT: Atraumatic and normocephalic. Cardiovascular: S1, S2. Respiratory: There is evidence of good air entry bilaterally. Abdomen: Soft, nontender. No masses. Extremities: The patient does have a right upper extremity in a sling. Central nervous system: No obvious focal deficits noted. LABORATORY: Sodium is 140, potassium 3.6, chloride 103, bicarb 26, BUN is 12 and creatinine 0.6. ASSESSMENT AND PLAN: 1. Encephalopathy. The patient's sensorium is much clearer. We will continue to follow up on her mental status. She has already been evaluated by the Neurology team. 2. Right proximal femoral fracture. Right proximal humeral fracture. The patient has been seen by the orthopedic team, and there is a plan for the patient to have repeat x- rays done in the outpatient. 3. Anemia. Follow up on hemoglobin and hematocrit. Transfuse PRBC's as needed. 4. Depression. Continue Lexapro. 5. Disposition. The patient resides in an assisted living facility. The plan is for patient to be discharged to a rehab facility. Once a bed is available, the patient can be discharged back. 6. Deep vein thrombosis prophylaxis. Lovenox. cc: Jb Soto MD MTDD
--- NOTE | 2018-08-29 14:35 | PROGRESS NOTE ---
DATE: 08/29/2018 Ms. Carvajal is awake and alert. She reports no more episodes of syncope, near syncope, altered awareness. Close friend and brother at the bedside give clear history of baseline cognitive impairment consistent with dementia. They report she has treated this with an [id number] product without evidence of success. They do not recall cholinesterase inhibitor, memantine or other medication tried for management of dementia. EEG did not show evidence of seizure as an explanation for her recent trouble. I do not think we need anything further from Neurology standpoint. I would consider cholinesterase inhibitor trial electively, not urgent. Thanks for asking Neurology to see Ms. Carvajal. cc: Melany Brand III, MD MTDD
[2018-08-29] MEDS: LIPITOR PO SCH (20:10)
--- NOTE | 2018-08-29 21:12 | DISCHARGE SUMMARY ---
ADMISSION DATE: 08/25/2018 DISCHARGE DATE: PRINCIPAL DIAGNOSIS: Encephalopathy, query etiology, now resolved. SECONDARY DIAGNOSES: 1. Hypertension. 2. Hyperlipidemia. 3. Peptic ulcer disease. 4. Proximal right femoral fracture. 5. Anemia. 6. Depression. DISCHARGE MEDICATIONS: Include the followin. Atorvastatin 40 mg p.o. daily. 2. Lexapro 10 mg p.o. daily. 3. Loperamide 2 mg p.o. p.r.n. as needed q.4 hours. 4. Pantoprazole 40 mg p.o. twice a day. 5. MiraLAX 17 g p.o. daily and needed for constipation. 6. Acetaminophen 650 mg q.4-6 hours p.r.n. 7. Norvasc 5 mg p.o. twice a day. 8. Lisinopril as directed 9. Metoprolol 50 mg p.o. daily. 10. Zofran 4 mg every 4-6 hours p.r.n. HOSPITAL COURSE: Ms. Chelsie Carvajal is a 51-year-old female who has a history of hypertension, hyperlipidemia, dementia, and recent right humeral fracture. The patient was admitted from assisted living facility because of a change in her mental status. CT scan of the brain done in the ER was negative. The patient's had an MRI of the brain which also did not show any acute pathology. EEG was unremarkable for seizure activity. She was seen by the Neurology team. Her mental status seemed to have improved. While in the hospital, she was seen by the orthopedic team for proximal right femoral fracture. She does have a sling in the right upper extremity. At this time, patient has done well. She is stable. She can [facility]. OBJECTIVE: During my evaluation today: Vital Signs: Temperature 98.5 degrees, pulse 79, respirations 18, blood pressure 141/47, oxygenation 98%. HEENT: Atraumatic, normocephalic. Cardiovascular: S1, S2. Respiratory System: Has evidence of good entry bilaterally. Abdomen: Soft, nontender. No masses felt. Extremities: Patient does have a right upper extremity in a sling. Central nervous system: No obvious focal deficit noted. PLAN: The patient [facility] be [facility]. She will need PT/OT evaluation. She will also need to be placed on precautions for falls. She is expected to take her discharge medications as noted above. She will need to follow up with her primary care physician in the outpatient, Dr. Chuy Mcelroy. Also follow up with Dr. Brandi Ely, and Dr. Hahn, Orthopedics, in the next 2 weeks with regards to fracture of right proximal humerus. cc: Jb Soto MD MTDD
[2018-08-30 08:09] LABS: BASO# 0.03 X1000 (0.0-0.2); BASO% 0.4 % (0.0-0.8); EOS# 0.11 X1000 (0.0-0.7); EOS% 1.6 % (0.0-10.0); HEMATOCRIT 32.7 % (37.0-47.0); HEMOGLOBIN 10.3 g/dL (12.0-16.0); LYMPH# 1.22 X1000 (1.2-3.4); LYMPH% 17.5 % (20.5-51.1); MCH 26.1 PG (27-31); MCHC 31.5 g/dL (33-37); MCV 82.8 FL (81-99); MONO# 0.47 X1000 (0.11-0.59); MONO% 6.7 % (1.7-9.3); MPV 9.8 FL (7.4-10.4); NEUT# 5.15 X1000 (1.4-6.5); NEUT% 73.8 % (42.2-75.2); PLT 380 X1000 (130-400); RBC 3.95 XMIL (4.2-5.4); RDW 14.7 % (11.5-14.5); WBC 6.98 X1000 (4.8-10.8)
[2018-08-30 08:13] LABS: AGAP 9; ALB/GLOB RATIO 0.9; ALKALINE PHOSPHATASE 85 U/L (32-104); BUN 13 mg/dL (8-22); CALCIUM 8.6 mg/dL (8.8-10.2); CHLORIDE 103 mmol/L (98-107); COSMO 272; CREATININE 0.6 mg/dL (0.5-0.9); ESTIMATED GFR > 60; GLUCOSE 104 mg/dL (70-104); GOT 17 U/L (10-30); GPT 14 U/L (10-36); POTASSIUM 3.8 mmol/L (3.5-5.1); SODIUM 136 mmol/L (136-145); TCO2 24 mmol/L (25-35); TOTAL BILIRUBIN 0.72 mg/dL (0.20-1.00); TOTAL PROTEIN 6.5 g/dL (6.3-8.3)
[2018-08-30] MEDS: LEXAPRO PO SCH (09:17)
[2018-08-30] MEDS: ASPIRIN PO SCH (09:19)
[2018-08-30] MEDS: PROTONIX PO SCH (09:19)
[2018-08-30] MEDS: LOVENOX SUBQ SCH (09:20)
[2018-08-30] MEDS: MIRALAX PO SCH (09:23)
[2018-08-30 13:55] VITALS: BP 115/57
== END 2018-08-30 18:07 | DRG 70 ==
LOC: SUPCPDRO → ED 08:45 → 3N 12:57 → SUATTDRO 12:57
PROVIDERS: ATTEND Internal Medicine
CPT/HCPCS: 51702; 70450; 70551; 71010; 71045; 80048; 80053; 80061; 81001; 82550; 82607; 82728; 82746; 82948; 83540; 83550; 83605; 83721; 83735; 84439; 84443; 84484; 85025; 85610; 85730; 93005; 93306; 93880; 94761; 95816; 97163; 97530; 99285; A9270; J1650; J7030; XXXXX

== ENCOUNTER 2018-11-03 18:37 | Inpatient (IN) ==
--- NOTE | 2018-11-03 19:06 | ED EKG INTERP ---
This chart was entered by Francisca Faustin Scribe, acting as scribe for Romain Gutiérrez DO. EKG Interpretation - EKG Time of EKG reading by physician:: 18:49 EKG Read and Signed by:: Romain Gutiérrez EKG Interpretation (*Must complete 3 of following elements*): Abnormal Rate: 84 Rhythm: NSR [place]: normal QRS: normal CO Interval: normal ST Wave: non-specific ST changes Attestation - Physician/ DOREEN Attestation Patient care was provided by Advanced Practice Provider:: No The physician spent face to face time with patient:: Yes Advanced Practice Provider documentation review:: Supervising physician onsite and consulted in the evaluation and care of this patient. The physician did have a face to face encounter with the patient. This chart was documented by the indicated scribe, (Francisca Faustin Scribe) and accurately reflects the services I performed and decisions made by Marla pineda Thomas E., DO, as attested by the provider's signature.
--- NOTE | 2018-11-03 20:24 | Diag Imaging Result Doc PS360 ---
EXAM: WRIST COMPLETE LEFT 11/03/2018 HISTORY: fall TECHNIQUE: Left wrist three views COMMENT: There is hypertrophic degenerative arthritis at the first metacarpocarpal joint. There is an impacted fracture of the distal radius. IMPRESSION: Fracture distal radius. Osteoarthritis. Electronically signed by Zacarias Garcia 11/03/2018 8:21 PM
--- NOTE | 2018-11-03 20:38 | Diag Imaging Result Doc PS360 ---
EXAM: CT HEAD W/O CONTRAST 11/03/2018 HISTORY: fall TECHNIQUE: This exam was performed using automated exposure control, adjustment of mA or kV according to patient size, and/or use of iterative reconstruction technique. COMMENT: There are calcifications in the left vertebral and both internal carotid arteries. There is patchy lucency throughout the white matter both hemispheres. The calvarium is intact. The visualized paranasal sinuses are clear. There is a scalp hematoma with soft tissue gas present on the left. There are some surgical skin clips. IMPRESSION: No evidence of acute intracranial disease. Chronic microvascular white matter disease. Left parietal scalp hematoma. Electronically signed by Zacarias Garcia 11/03/2018 8:35 PM
[2018-11-03] MEDS ORDERED: NORCO-5 PO ONE (22:33)
--- NOTE | 2018-11-03 23:18 | PROVIDER DOCUMENTATION ---
This chart was entered by Francisca Faustin Scribe, acting as scribe for Jose Fitzpatrick MD. HPI-Musculoskeletal Pain/Inj - GENERAL Chief Complaint: Head Injury Stated Complaint: FALL/ LAC TO HEAD Time Seen by Provider: 11/03/18 18:56 Source: patient - HX OF PRESENT ILLNESS-MUSKULOSKELTAL Nature of Presenting Problem: 83 y/o female presents to ED with laceration to L parietal scalp and L wrist pain onset just prior to arrival due to fall. Pt fell and hit her head, but is unable to tell what happened. Pt states she is unsure if she lost consciousness, but she did hit her head. Pt also unable to tell how she got to ED. Pt is alert and oriented. Quality of Pain: reports: aching Severity in ED: moderate Onset/Duration: just prior to arrival Timing: still present Modifying Factors: worse with: palpation Any recent injury?: Yes (fall) Locality of Occurance: Home Similar Symptoms Previously?: No Recently seen or treated by another doctor?: No - FALL INJURY Location of Pain/Injury: reports: head, upper extremity Pain Radiation: reports: no radiation Reason for Fall: reports: unknown Symptoms prior to fall:: reports: none Loss of Consciousness: unsure Injury Associated Symptoms: reports: joint pain (L wrist), other (20 cm laceration to L parietal region of scalp) - UPPER EXTREMITY PAIN/INJURY Extremities Pain Location: wrist: left Context / Method of Injury: reports: fell Associated Symptoms: reports: denies symptoms Review of Systems - Adult - REVIEW OF SYSTEMS - ADULT Constitutional: denies: chills, fever Eyes: reports: no symptoms reported Ears, Nose, Mouth & Throat: reports: no symptoms reported Cardiovascular: reports: no symptoms reported Respiratory: reports: no symptoms reported Gastrointestinal: denies: abdominal pain, diarrhea, nausea, vomiting Genitourinary: reports: no symptoms reported Musculoskeletal: reports: joint pain (L wrist). denies: back pain Integumentary: reports: other (20 cm laceration to L parietal region of scalp). denies: hives Neurological: denies: dizziness/vertigo, seizure Psychiatric: reports: no symptoms reported Endocrine: reports: no symptoms reported Hematologic/Lymphatic: reports: no symptoms reported Allergic/Immunologic: reports: no symptoms reported All Other Systems: Reviewed and Negative Past History - Adult - PAST MEDICAL HISTORY-ADULT Review of Records: reports: Old Records Reviewed, Nursing Assessment Review, Medications Reviewed Major Childhood Illnesses: reports: denies history Cardiovascular: reports: HTN Neurological: reports: dementia - PRIOR SURGERIES/PROCEDURES Surgical/Procedure History: reports: hysterectomy - IMMUNIZATION STATUS Childhood Immunizations: See Nurse Assessment Flu Vaccine: See Nurse Assessment - FAMILY HISTORY Family History: reviewed, not pertinent - SOCIAL HISTORY Smoking: non-smoker Substance Use: none/never Alcohol Use Frequency: never Living Situation: family Physical Exam-Injury Related - Physical Exam-Injury Related Initial Vital Signs Reviewed: Yes General Appearance: appears well, alert, no apparent distress, other (does not remember what happened, if she lost consciousness, or how she got to ED) Eyes: PERRL/EOMI, pink conjunctivae Head, Ears, Nose, Mouth & Throat: normocephalic/atraumatic, moist mucous membranes, other (20 cm laceration to L parietal region of scalp) Neck: non-tender, full range of motion Respiratory: chest non-tender, lungs clear, normal breath sounds Cardiovascular: normal peripheral pulses, regular rate, rhythm Abdominal Exam: normal bowel sounds, non tender, soft Back Exam: normal inspection, no CVA tenderness, no vertebral tenderness Extremity: normal gait, tenderness (L wrist). negative: normal range of motion (decreased ROM of L wrist) Integumentary: normal color, warm/dry, laceration (20 cm laceration to L parietal region of scalp) Neurologic: bay stocker II-XII nml as tested, grossly normal, no motor/sensory deficits, other (does not remember what happened, if she lost consciousness, or how she got to ED) Psych/Mental Status: normal mood/affect, normal thought content, normal thought process, other (does not remember what happened, if she lost consciousness, or how she got to ED) Progress - PLAN OF CARE/RESULTS Progress/Plan/Lab Results: Vital Signs - 8 hr 11/03/18 18:50 Temperature 98 F Pulse Rate 82 Respiratory Rate 16 Blood Pressure 156/59 O2 Sat by Pulse Oximetry 91 L Laboratory Results - last 24 hr 11/03/18 18:53 POC Glucose 162 H Orders Category Date Time Status Wrist Splint DIRECTED Care 11/03/18 20:[address] HEAD W/O CONTRAST [CT] Stat Exams 11/03/18 20:23 Completed WRIST COMPLETE LEFT [RAD] Stat Exams 11/03/18 20:00 Completed CBC WITH DIFF [HEME] Stat Lab 11/03/18 23:10 Uncollected COMPREHENSIVE METABOLIC PANEL [CHEM] Stat Lab 11/03/18 23:10 Uncollected URINALYSIS W/POSS RFLX CULT [URINALYSIS] Stat Lab 11/03/18 23:10 Uncollected Hydrocodone/APAP 5 mg/325 mg [Cook-5] Med 11/03/18 22:33 Discontinued 1 each PO NOW ONE - XRAY 1 XRAY: Left XRAY Study: Wrist Impression: Abnormal (COMMENT: There is hypertrophic degenerative arthritis at the first metacarpocarpal joint. There is an impacted fracture of the distal radius. IMPRESSION: Fracture distal radius. Osteoarthritis. Electronically signed by Zacarias Garcai 11/03/2018 8:21 PM) - CT/MRI 1 CT Study: Head Impression: Normal (COMMENT: There are calcifications in the left vertebral and both internal carotid arteries. There is patchy lucency throughout the white matter both hemispheres. The calvarium is intact. The visualized paranasal sinuses are clear. There is a scalp hematoma with soft tissue gas present on the left. There are some surgical skin clips. IMPRESSION: No evidence of acute intracranial disease. Chronic microvascular white matter disease. Left parietal scalp hematoma. Electronically signed by Zacarias Garcia 11/03/2018 8:35 PM) - CONSULTS/PCP/HOSPITALIST Notification #1 *Consult/PCP/Hospitalist*: Dr. Pedersen Time Discussed: 21:00 Consult Disposition: Admit Procedures - LACERATION/WOUND REPAIR/FB Left Head Wound Location: Other: L parietal region Wound Length: 20 cm Wound's Depth, Shape: superficial, irregular, flap Wound Explored/Foreign Body: clean Irrigated with Saline?: Yes Prepped with: Chlorhexidine Wound Repaired with: [place]-Large (20) Layer Closure?: No Sterile Dressing Applied?: Yes Splint Applied?: No Sling Applied?: No Post Procedure Neurovascular Exam: Intact - SPLINTING Left Upper Extremity Other Location: Wrist Pre-Procedure Neurovascular Exam: Intact Pre-Fabricated Splint: Wrist Applied By: ED Nurse Assisted By: apartment groundskeeper Post Procedure Neurovascular Exam: Intact Departure - Departure Date of Disposition Decision: 11/03/18 Time of Disposition Decision: 20:09 DIAGNOSIS: Fall Qualifiers: Encounter type: initial encounter Qualified Code(s): W19.XXXA - Unspecified fall, initial encounter Scalp laceration Qualifiers: Encounter type: initial encounter Qualified Code(s): S01.01XA - Laceration with out foreign body of scalp, initial encounter Radial fracture Qualifiers: Encounter type: initial encounter Radius location: distal Fracture type: closed Fracture morphology: unspecified fracture morphology Laterality: left Qualified Code(s): S52.502A - Unspecified fracture of the lower end of left radius, initial encounter for closed fracture Disposition: ADMITTED INPATIENT 09 Certified Medical Emergency: Emergent Condition: Stable Additional Freetext Instructions: ED Follow Up Instructions: Return to ED or primary care physician for staple removal in 7 days. You have been treated by a care provider in the Emergency Department. These instructions are being provided to you so you can have an understanding of how to care for yourself upon discharge. Upon discharge from the Emergency Department, you are responsible for making arrangements for follow-up care by a physician of your choice. Take all prescribed medications as directed. Return to the Emergency Department immediately for any new or worsening symptoms. You may call the Physician Referral phone number at [phone] to obtain a l ist of Physicians who are taking new patients. Prescriptions: Mupirocin Cream [Bactroban Cream] 1 applicatn TOP TID #1 tube Cephalexin 500 mg PO BID 7 Days #14 cap Referrals and Follow-Ups: Chuy Mcelroy [Primary Care Provider] - Noam Jensen MD [ACTIVE STAFF PHYSICIAN] - Discharge Education: Fall Prevention in the Home, Adult, [id number], Radial Fracture, Laceration Care, Adult, [id number] - Critical Care Note This patient required my direct & personal management of CC.: No Attestation - Physician/ DOREEN Attestation Patient care was provided by Advanced Practice Provider:: No The physician spent face to face time with patient:: Yes Advanced Practice Provider documentation review:: Supervising physician onsite and consulted in the evaluation and care of this patient. The physician did have a face to face encounter with the patient. This chart was documented by the indicated scribe, (Francisca Faustin Scribe) and accurately reflects the services I performed and decisions made by me, Jose Fitzpatrick MD, as attested by the provider's signature.
[2018-11-03 23:53] LABS: URINE SOURCE CATH
[2018-11-04 00:07] LABS: BASO# 0.01 X1000 (0.0-0.2); BASO% 0.1 % (0.0-0.8); EOS# 0.02 X1000 (0.0-0.7); EOS% 0.3 % (0.0-10.0); HEMATOCRIT 30.8 % (37.0-47.0); IMM GRAN# 0.02 X1000 (0.0-0.04); IMM GRAN% 0.3 % (0.0-0.5); LYMPH# 0.98 X1000 (1.2-3.4); LYMPH% 12.5 % (20.5-51.1); MCH 25.1 PG (27-31); MCHC 32.5 g/dL (33-37); MCV 77.2 FL (81-99); MONO# 0.46 X1000 (0.11-0.59); MONO% 5.9 % (1.7-9.3); MPV 10.9 FL (7.4-10.4); NEUT# 6.36 X1000 (1.4-6.5); NEUT% 80.9 % (42.2-75.2); PLT 308 X1000 (130-400); RBC 3.99 XMIL (4.2-5.4); WBC 7.85 X1000 (4.8-10.8)
[2018-11-04 00:08] LABS: BILIRUBIN URINE NEGATIVE (NEGATIVE); BLOOD URINE NEGATIVE (NEGATIVE); COLOR STRAW; GLUCOSE URINE NEGATIVE (NEGATIVE); KETONE URINE NEGATIVE (NEGATIVE); LEUKOCYTES URINE NEGATIVE (NEGATIVE); NITRITE URINE NEGATIVE (NEGATIVE); PROTEIN URINE NEGATIVE (NEGATIVE); SP GRAVITY URINE 1.004; TURBIDITY URINE CLEAR (CLEAR); UROBILINOGEN URINE NORMAL (NORMAL)
[2018-11-04 00:10] LABS: UR EPITHELIAL CELLS <10 /HPF (<10); URINE BACTERIA NEGATIVE /HPF; URINE RBC <10 /HPF (<10); URINE WBC <10 /HPF (<10)
[2018-11-04 00:29] LABS: AGAP 12; ALBUMIN 3.2 g/dL (3.5-5.0); ALKALINE PHOSPHATASE 109 U/L (32-104); BUN 17 mg/dL (8-22); CALCIUM 8.5 mg/dL (8.8-10.2); CHLORIDE 106 mmol/L (98-107); COSMO 285; CREATININE 0.6 mg/dL (0.5-0.9); ESTIMATED GFR > 60; GLUCOSE 146 mg/dL (70-104); GOT 19 U/L (10-30); GPT 17 U/L (10-36); POTASSIUM 3.6 mmol/L (3.5-5.1); SODIUM 141 mmol/L (136-145); TCO2 23 mmol/L (25-35); TOTAL PROTEIN 6.5 g/dL (6.3-8.3)
[2018-11-04] MEDS ORDERED: TYLENOL PO PRN (06:32)
[2018-11-04] MEDS ORDERED: ZOFRAN IV PRN (06:37)
--- NOTE | 2018-11-04 07:45 | Diag Imaging Result Doc PS360 ---
EXAM: KNEE 3 VIEWS LEFT 11/04/2018 HISTORY: Fall,Left Knee Pain TECHNIQUE: Left knee three views COMMENT: There is some joint space narrowing in the medial compartment. There is no evidence of fracture, dislocation or periosteal reaction. IMPRESSION: No evidence of acute bony disease. Electronically signed by Zacarias Garcia 11/04/2018 7:42 AM
--- NOTE | 2018-11-04 08:51 | Diag Imaging Result Doc PS360 ---
EXAM: TRAUMA SHOULDER RIGHT 11/04/2018 HISTORY: Pain, recent Proximal Humeral Fracture TECHNIQUE: Right shoulder two views COMMENT: There is an apparent impacted fracture of the humeral head which is slightly more deformed than on the previous study of 08/21/2018. No additional fractures are demonstrated. IMPRESSION: Worsened alignment of humeral neck fracture since 08/21/2018. Electronically signed by Zacarias Garcia 11/04/2018 8:48 AM
--- NOTE | 2018-11-04 08:52 | Diag Imaging Result Doc PS360 ---
EXAM: XRAY PELVIS W/HIP 2-3VW LT 11/04/2018 HISTORY: pain TECHNIQUE: AP pelvis and bilateral hips two views COMMENT: There is a subcapital fracture of the left femoral neck. There are no previous studies. There is generalized osteopenia. IMPRESSION: Fracture left femoral neck. Electronically signed by Zacarias Garcia 11/04/2018 8:49 AM
--- NOTE | 2018-11-04 08:53 | Diag Imaging Result Doc PS360 ---
EXAM: WRIST 2 VIEWS-LEFT 11/04/2018 HISTORY: Fracture TECHNIQUE: Left wrist two views COMMENT: There is an impacted fracture of the distal radius. This was also demonstrated on 11/03/2018. There are degenerative changes in the first metacarpocarpal joint. IMPRESSION: Fracture distal radius. Osteoarthritis. Electronically signed by Zacarias Garcia 11/04/2018 8:50 AM
--- NOTE | 2018-11-04 10:21 | ORTHOPAEDICS CONSULTATION ---
DATE: 11/04/2018 CLINICAL HISTORY: The patient is an 83-year-old female who presented to the emergency room last evening after sustaining a fall. The patient fell and struck her head. She does not remember and is amnestic to the event. She is unsure if she lost consciousness but did strike her head and sustained a laceration. She did present to the emergency room alert and oriented. X-rays were obtained revealing left distal radial fracture, and Orthopedic consultation was requested. HOME MEDICATIONS: Amlodipine Besylate 5 mg p.o. b.i.d., Lexapro 10 mg p.o. q.a.m., [place] 5 mg/325 mg p.o. q.6 hours p.r.n. pain, lisinopril 20 mg p.o. q.a.m., loperamide HCl 2 mg capsule 1 to 2 p.o. 4 times a day p.r.n., metoprolol succinate ER 50 mg p.o. q.a.m., Zofran 4 mg p.o. q.6 hours p.r.n. nausea and vomiting, MiraLAX 17 g powder p.o. q.a.m., Tylenol 650 mg p.o. q.6 hours p.r.n., atorvastatin calcium 40 mg p.o. nightly at bedtime. ALLERGIES: Sulfa. PAST MEDICAL HISTORY: INCOMPLETE REPORT--ENDS HERE cc: Ahsan Jensen MD
--- NOTE | 2018-11-04 11:15 | HISTORY AND PHYSICAL ---
HISTORY: Ms. Chelsie Carvajal is an 83-year-old female who has a history of hypertension, as well as dementia. The patient did sustain a fall prior to coming to the hospital, and she was noted to have a laceration on the left side of her face in the region of the left upper lid. She was also noted to have a fracture involving the distal left radius. CT scan of the brain done did not show any evidence of acute intracranial process. Vital signs are noted for hypertension with a blood pressure of 164/69. She had the laceration on the left scalp region repaired with camacho, and she had a left wrist splint put in place. PLAN: The patient will require local wound care for the laceration on the left scalp region, and also Orthopedic evaluation for the fracture of the left distal radius. cc: Jb Soto MD MTDD
[2018-11-04] MEDS: NORCO-5 PO PRN (11:29)
[2018-11-04] MEDS: PRINIVIL PO SCH (11:29)
[2018-11-04] MEDS: LEXAPRO PO SCH (11:29)
[2018-11-04] MEDS: TOPROL XL PO SCH (11:29)
[2018-11-04] MEDS: NORVASC PO SCH ×2 (11:29→23:26)
[2018-11-04] MEDS: FERROUS SULFATE PO SCH (11:29)
[2018-11-04] MEDS: MIRALAX PO SCH (11:30)
[2018-11-04] MEDS: LOVENOX SUBQ SCH (12:37)
--- NOTE | 2018-11-04 13:15 | PROGRESS NOTE ---
DATE: 11/04/2018 INTERVAL HISTORY: The official history and physical note is pending. However, based on my review of records and talking with the patient's family, it appears the patient came in from assisted living facility after a mechanical fall. The mechanism of his fall is unclear. She does have prior history of hypertension, hyperlipidemia, chronic pain and dementia, and also right-sided humerus neck fracture in the past. In the emergency room, a CT scan was negative for intracranial hemorrhage, but she is detected to have left-sided distal radius, left femoral neck fracture as well as further displacement of right humeral neck fracture. She is admitted for orthopedic evaluation. OBJECTIVE: General: At the time of my evaluation, she is alert, but she is only oriented to herself. She is trying to eat her breakfast. Patient denies any undue pain, but she is not able to contribute to clinical history meaningfully. Vitals: Temperature 98.8 degrees, pulse 73, respiratory rate 18, blood pressure of 154/46, saturating 98% on 2 L nasal cannula. General: Does not appear in an acute distress at the moment. She is not complaining of any pain. She is using her right arm to use a fork and trying to eat. HEENT: Pupils are equal, reacting to light. Oral cavity is moist. There are some food particles that she is eating. She has a left forehead and temporal region hematoma without any active bleeding. Musculoskeletal: She also has a cast of her left wrist. Her left lower extremity is shorter than the right. She is able to lift right lower extremity above ground level. Her pulses and circulation is intact on left lower extremity. LABORATORIES: Suggestive of microcytic anemia, likely due to iron deficiency. Normal kidney function. Urinalysis is unremarkable. IMAGING: Head CT was negative for intracranial hemorrhage. ASSESSMENT: 1. Mechanical fall, unwitnessed. 2. Fracture of left distal radius, left femoral neck and further displacement of right-sided humeral neck fracture. 3. History of dementia. 4. Essential hypertension. 5. Hyperlipidemia. 6. Chronic pain. PLAN: I will resume her antihypertensive medication, including amlodipine, lisinopril, metoprolol. I am holding lisinopril at the moment considering she might go for surgical procedure tomorrow. Orthopedics on board. I will appreciate recommendation. DISPOSITION: I will continue to monitor patient inside the hospital. It looks like she may eventually have to go to rehab. I called the patient's daughter and informed her about patient's course. I answered all of her questions. I also explained to her that long-term she might have to go for a jail facility rather than assisted living facility and answered all questions. cc: Tyrese Carpio MD
--- NOTE | 2018-11-04 14:36 | HISTORY AND PHYSICAL ---
PRIMARY CARE PROVIDER: Dr. Chuy Mcelroy. CHIEF COMPLAINT: Fall. HISTORY OF PRESENT ILLNESS: Ms. Carvajal is an 83-year-old, female with a past medical history most notable for dementia, hypertension, and hyperlipidemia who is currently at an assisted living facility at [facility] here in [place]. She was recently admitted in August 2018 secondary to a right humeral fracture that was nonsurgical, followed by Dr. Hahn. She did go to rehab briefly at [facility] and is now back at [facility]. The patient's daughter states that for a few months now, they have noticed that she has had some worsening dementia. She states that it does seem to be worse in the evening. This may be some 's as well. The patient is ambulatory with assistance, though has had increased falls recently. [facility] staff stated that they came in and found that she had fallen this evening just prior to her arrival to the ER. She did have a laceration to the left forehead and the left eyebrow area, as well as a fairly large laceration to the left scalp area. She also was complaining of left wrist and left knee pain. The patient states that she does not remember the fall. She was not sure if she had loss of consciousness. She is only oriented to person and time. She thought she was still at [facility]. There are some questions related to history of present illness and past medical history that she does not answer correctly. Her brother and [id number] were at bedside. Other than worsening dementia symptoms, they deny her complaining of anything recently. Her [id number] states that she has had a urinary tract infection in the past. She does not have a history of having frequent urinary tract infections, though she does state that the patient does have to use the bathroom frequently. The patient has had pain medicine and is denying any pain at this time, though previously was complaining of left hip pain, left wrist pain, and did have right knee pain with manipulation. She denies any shortness of breath, cough, chest pain, abdominal pain. She denies any nausea, vomiting, or diarrhea. She denies any pain or burning with urination. Upon examination, the patient did have good range of motion of the right lower extremity. She was able to bend her knee and raise her leg without reports of pain, though upon bending her left leg, she did report sharp pain in the knee area. She did not report any pain when raising her leg. She was noted to have left wrist pain and did have a left distal radius fracture noted. This had been splinted previously in the ER. She also did have approximately a 20 cm laceration to the left parietal region of her scalp. This laceration was repaired Dr. Fitzpatrick, the ER physician. They did place 20 large camacho. She also did have a small laceration noted to the forehead just at the level of her left eyebrow, though this was able to be repaired with placement of 2 small Steri-Strips. The patient denied any visual disturbance in her left eye. CT of the head without contrast did not show any acute intracranial disease. There was a left parietal scalp hematoma noted. Left knee x- ray did not show any acute abnormality, though we are awaiting the official radiology over-read. The patient was placed inpatient for admission. REVIEW OF SYSTEMS: A 14 point review of systems was conducted with the patient as well as the assistance of her family at bedside. All were negative except for pertinent positives as mentioned above in the HPI. PAST MEDICAL HISTORY: 1. Recent right humeral fracture, nonsurgical, secondary to a fall, which was followed by Dr. Hahn in August 2018. 2. Dementia. 3. Hypertension. 4. Hyperlipidemia. 5. Gastroesophageal reflux disease. 6. Depression. 7. Iron-deficiency anemia. 8. History of a GI bleed in May 2018. PAST SURGICAL HISTORY: Hysterectomy. SOCIAL HISTORY: The patient does not have any past or present tobacco, alcohol, or illicit drug use. She is single and apparently has no children. Her brother and his were at bedside. She is a resident at [facility]. She does require ambulatory assistance and has had a recent increase in falls. FAMILY HISTORY: Positive for her mother having a history of melanoma skin cancer and hypertension. Her father had a history of chronic kidney disease, heart disease, and hypertension. ALLERGIES: Patient has allergies to sulfa. HOME MEDICATIONS: 1. Amlodipine 5 mg p.o. b.i.d. 2. Atorvastatin 40 mg p.o. at bedtime. 3. Lexapro 10 mg p.o. q.a.m. 4. [place] 5 mg p.o. q.6 hours p.r.n. 5. Lisinopril 20 mg p.o. q.a.m. 6. Loperamide 1 to 2 tablets p.o. 4 times a day p.r.n. 7. Toprol-XL 50 mg p.o. q.a.m. 8. Zofran ODT 4 mg p.o. q.6 hours p.r.n. for nausea. 9. MiraLAX 17 g p.o. q.a.m. DIAGNOSTIC DATA: White blood cell count of 7.85, hemoglobin 10, hematocrit 30.8, platelet count is 308,000. Sodium 141, potassium 3.6, chloride 106, serum bicarb is 23, BUN 17, creatinine 0.6, glucose 146, calcium 8.5. Liver function tests within normal limits. Urinalysis was obtained via catheter. It was negative for protein, glucose, ketones, blood, nitrites, leukocytes, white blood cells, or bacteria. CT of the head without contrast showed no evidence of acute intracranial disease. There was chronic microvascular white matter disease and a left parietal scalp hematoma. Left wrist x-ray showed a fractured distal radius and osteoarthritis. A left knee x-ray showed no evidence of acute bony disease. PHYSICAL EXAMINATION: VITAL SIGNS: Temperature is 98 degrees, heart rate 82, blood pressure 156/59, respirations 16, oxygen saturation is 91% on room air. The patient was placed with nasal cannula at 2 L and did have oxygen saturation of 98. The patient was given pain medication in the ER. This could be secondary to this. She was not in any respiratory distress. GENERAL: Ms. Carvajal is a pleasant, 83-year-old, elderly, female. She was resting on the ER stretcher. She was in no acute distress. She was awake and alert, and oriented to person and time, though not place. She was on not able to answer some questions related to past medical history and HPI. She was able to answer simple questions and follow commands. HEENT: Head: The patient does have approximately a 20 cm laceration noted to the left parietal scalp area. This wound had been repaired by the ER physician with placement of 20 large camacho. Bleeding is controlled at this time. She also did have a small laceration noted to her left forehead at the level of the left eyebrow which has had Steri-Strips placed and bleeding is controlled as well in this area. She does have hematoma and ecchymosis noted to both areas. The patient denied any visual disturbance in her left eye. Pupils are equal, round, reactive to light, were 3 mm bilaterally and brisk. Oral mucosa was moist. Oropharynx was clear. NECK: Supple. Trachea midline. CARDIOVASCULAR: Patient had S1-S2 present. No murmurs, gallops, rubs appreciated. Regular rate and rhythm. PULMONARY: Patient has symmetrical chest expansion bilaterally. Lung sounds were clear to auscultation in bilateral full pineda. ABDOMEN: Soft, nontender, nondistended. Bowel sounds were present in all 4 quadrants, were normoactive. EXTREMITIES: No cyanosis, clubbing, or edema noted. Pulse, motor, and sensory were intact in all extremities. Radial pulses and pedal pulses were 2+ bilaterally. The patient was complaining of left wrist pain. She does have a left distal radius fracture which has been previously splinted. She does have good capillary refill that is less than 3 distal to her left wrist splint. The patient had good range of motion in her right lower extremity. Did not report pain with movement or manipulation, though upon evaluation of her left lower extremity, she did complain of pain in her right knee with movement and manipulation. INTEGUMENTARY: The patient's skin is pink, warm, and dry. She does have lacerations noted to the left forehead and left scalp as mentioned above. NEUROLOGICAL: Patient is alert and oriented to person And time, though not placed. Her family at bedside states this is essentially her baseline. They have stated that recently, they have noticed some worsening dementia symptoms. They also do believe that she may have sundowner's. This does tend to be worse in the evening, though at this time, she is able to move all extremities. She does not appear to have any new focal neurological deficits noted. ASSESSMENT AND PLAN: 1. Fall from what is likely a standing position, though may have been out of bed. It was not a witnessed fall. She does have injuries of a left scalp laceration in the parietal region. This was approximately 20 cm in length. This has been repaired previously in the emergency room with twenty large camacho. She did have a small laceration in the left eyebrow, left forehead area which was repaired with Steri-Strips. She also has a left distal radius fracture which has been splinted in the emergency room previously as well. For evaluation of her left radius fracture, we will place a consult with Dr. Jensen with orthopedic surgery. We will await their evaluation and further recommendations for management. The patient may need physical therapy, though we will await this until she has been evaluated by Dr. Jensen. We have placed a case management consult for possible need for rehab as well. She will be placed with fall precautions also. 2. A left distal radius fracture. We will continue with treatment as mentioned above for #1. 3. Left scalp laceration in the parietal region as well as a left forehead/eyebrow laceration. We will continue with daily wound care. This will need to be re-evaluated and camacho will need to be followed upon to be removed once wound has healed appropriately. 4. Dementia, aware. 5. Hypertension. We will continue her regularly prescribed medicines for this. 6. Hyperlipidemia. We will continue her atorvastatin. 7. Deep vein thrombosis prophylaxis will be provided with sequential compression devices at this time until she is evaluated by orthopedic surgery. 8. The patient has been placed on the surgical floor with telemetry. She will have vital signs every 4 hours, given her fall with head injury. We will do neurological checks every 4 hours for the next 24 hours. She will be placed on fall precautions. She will be on a heart healthy diet. We will repeat a CBC and BMP tomorrow. That will be on November 05. Further orders and recommendations pending hospital course, diagnostic studies, and physician evaluation. Dictated by BAILEY Franco for Jb Soto MD cc: Jb Soto MD
--- NOTE | 2018-11-04 14:40 | ORTHOPAEDICS CONSULTATION ---
DATE: 11/04/2018 SUBJECTIVE: The patient is a pleasant 83-year-old female, who is status post fall injuring her left wrist and sustaining a left scalp laceration. The patient fell and struck her head. She is amnestic to the event. It appears she is unsure if she lost consciousness. She was unable to tell how she got to the emergency department. However, she was alert and oriented upon arrival. She underwent x-rays revealing a left distal radial fracture. She has been treated nonoperatively for a right proximal humeral fracture sustained approximately 2-1/2 months ago. Orthopedic consultation was requested. HOME MEDICATIONS: Amlodipine mesylate 5 mg p.o. b.i.d., Lexapro 10 mg p.o. q.a.m., [place] 5 mg p.o. q.6 hours p.r.n. pain, lisinopril 20 mg p.o. q.a.m., loperamide HCl 1 to 2 p.o. 4 times a day, p.r.n., metoprolol succinate ER 50 mg p.o. q.a.m., Zofran 4 mg p.o. q.6 hours p.r.n. nausea and vomiting, MiraLAX 17 g powder p.o. q.a.m., Tylenol 650 mg p.o. q.6 hours p.r.n., atorvastatin calcium 40 mg p.o. at bedtime. ALLERGIES: Sulfa. PAST MEDICAL HISTORY: Dementia, hypertension, hyperlipidemia, gastroesophageal reflux disease, depression, iron deficiency anemia, recent GI bleed the in 05/2018, recent right humeral fracture treated nonoperatively. She was recently in the hospital for altered mental status, admitted in 08/2018. PAST SURGICAL HISTORY: Hysterectomy, esophagogastroduodenoscopy for a bleeding duodenal ulcer on 06/05/2018. PHYSICAL EXAMINATION: Exam: Patient is alert and oriented. She does not recall exam, however. She does have a small laceration with some butterfly strips just to the left of left eyebrow. She has a left parietal scalp laceration and with indwelling camacho. Her cervical spine is nontender to palpation. Her left shoulder is nontender to palpation and nontender with palpation over the elbow. She does have an abrasion to the posterior aspect of the elbow. Left wrist has some mild swelling. She has tenderness to palpation. She is able to flex all her fingers. Compartments are soft. Her right shoulder has passive forward flexion to approximately 120 degrees with some discomfort. She has some discomfort with external rotation. Nontender over the elbow, wrist and fingers. With lateral compression of the pelvis, she has some discomfort in left hip region. She has some discomfort with gentle range of motion. There is no crepitus about the hip. Compartments are soft. Her left knee has some mild tenderness to palpation. There is no obvious swelling or effusion. Calf is soft. Her right hip has no skin discomfort on gentle range of motion. Knee is nontender to palpation. Calf is soft and she is able to actively move bilateral lower extremities. IMAGING: Her head CT revealed no evidence of intracranial disease. It did reveal a left parietal scalp hematoma. X-rays left wrist revealed impacted left distal radial fracture. X-rays of the left knee revealed no acute fracture or dislocation IMPRESSION: 1. Status post fall with a left distal radial fracture. 2. Left hip pain. 3. Right shoulder pain with recent proximal humeral fracture. PLAN: At this point, we will obtain repeat lateral of the left distal radius for further evaluation. We will also obtain x-rays of the left hip her right shoulder. Will maintain the patient in the wrist immobilizer at this time and will await the new x-ray. All of her questions were answered and if the repeat lateral reveals acceptable alignment, we will plan on nonoperative treatment for the left distal radius. cc: Ahsan Jensen MD
[2018-11-04] MEDS: LIPITOR PO SCH (23:26)
[2018-11-05] MEDS ORDERED: CALMOSEPTINE OINTMENT TOP PRN (03:09)
[2018-11-05 06:44] LABS: BASO# 0.03 X1000 (0.0-0.2); BASO% 0.5 % (0.0-0.8); EOS# 0.25 X1000 (0.0-0.7); EOS% 4.3 % (0.0-10.0); HEMATOCRIT 27.6 % (37.0-47.0); HEMOGLOBIN 8.9 g/dL (12.0-16.0); LYMPH# 1.41 X1000 (1.2-3.4); LYMPH% 24.3 % (20.5-51.1); MCH 25.1 PG (27-31); MCHC 32.2 g/dL (33-37); MONO# 0.62 X1000 (0.11-0.59); MONO% 10.7 % (1.7-9.3); MPV 11.1 FL (7.4-10.4); NEUT# 3.49 X1000 (1.4-6.5); NEUT% 60.2 % (42.2-75.2); PLT 267 X1000 (130-400); RBC 3.54 XMIL (4.2-5.4)
[2018-11-05 06:59] LABS: AGAP 9; BUN 12 mg/dL (8-22); CALCIUM 8.1 mg/dL (8.8-10.2); CHLORIDE 107 mmol/L (98-107); COSMO 280; CREATININE 0.6 mg/dL (0.5-0.9); ESTIMATED GFR > 60; GLUCOSE 110 mg/dL (70-104); POTASSIUM 3.7 mmol/L (3.5-5.1); SODIUM 140 mmol/L (136-145); TCO2 24 mmol/L (25-35)
[2018-11-05 08:45] LABS: URINE SOURCE CATH
[2018-11-05 08:56] LABS: BILIRUBIN URINE NEGATIVE (NEGATIVE); BLOOD URINE NEGATIVE (NEGATIVE); COLOR YELLOW; GLUCOSE URINE NEGATIVE (NEGATIVE); KETONE URINE NEGATIVE (NEGATIVE); LEUKOCYTES URINE NEGATIVE (NEGATIVE); NITRITE URINE NEGATIVE (NEGATIVE); PH URINE 7.5; PROTEIN URINE NEGATIVE (NEGATIVE); SP GRAVITY URINE 1.006; TURBIDITY URINE CLEAR (CLEAR); UR EPITHELIAL CELLS <10 /HPF (<10); URINE BACTERIA NEGATIVE /HPF; URINE RBC <10 /HPF (<10); URINE WBC <10 /HPF (<10); UROBILINOGEN URINE NORMAL (NORMAL)
[2018-11-05] MEDS: NS 1,000 ML IV SCH ×2 (09:10→18:11)
[2018-11-05] MEDS: MIRALAX PO SCH (09:11)
[2018-11-05] MEDS: FERROUS SULFATE PO SCH (09:11)
[2018-11-05] MEDS: NORVASC PO SCH (09:11)
[2018-11-05] MEDS: TOPROL XL PO SCH (09:11)
[2018-11-05] MEDS: LEXAPRO PO SCH (09:11)
--- NOTE | 2018-11-05 09:19 | EKG Report ---
Test Performed on : 11/03/2018 6:49:09 PM Test Reason : ED. No order in [place] Blood Pressure : / mmHG Vent. Rate : 084 BPM Atrial Rate : 084 BPM P-R Int : 134 ms QRS Dur : 082 ms QT Int : 364 ms P-R-T Axes : 006 017 031 degrees QTc Int : 430 ms Normal sinus rhythm. Nonspecific ST and T wave abnormality Abnormal ECG When compared with ECG of 25-AUG-2018 09:11, Criteria for Inferior infarct are no longer present Nonspecific T wave abnormality has replaced inverted T waves in Inferior leads Nonspecific T wave abnormality no longer evident in Lateral leads Unconfirmed Result
--- NOTE | 2018-11-05 09:55 | ORTHOPAEDICS PROGRESS NOTE ---
DATE: 11/05/2018 SUBJECTIVE: The patient is an 83-year-old female who is status post fall, sustaining a left distal radial fracture and left parietal scalp laceration. X-rays of the left hip were reviewed and did reveal a left displaced femoral neck fracture. X-rays of the right shoulder revealed the proximal humeral fracture with some interval healing and overall acceptable alignment. OBJECTIVE: On physical exam of the patient's left upper extremity, an immobilizer was in place. Able to flex and extend all of her fingers. Left lower extremity has continued discomfort with gentle range of motion, about the hip. IMPRESSION: Status post a fall with left displaced femoral neck fracture and left distal radial fracture. PLAN: At this point, discussed treatment options with the patient. At this time, would recommend to proceed with hemiarthroplasty of the left hip and open reduction internal fixation of the left distal radius. Risks and benefits of surgery were explained including the risks of anesthesia, , bleeding, infection, failure to relieve pain, postoperative stiffness, nerve injury, blood clots, and other imponderables. All questions were answered. The patient will plan on surgery with either myself of one of my partners, and we will check the schedule. We will maintain her NPO at this time. cc: Ahsan Jensen MD MTDRandy
--- NOTE | 2018-11-05 12:21 | PROGRESS NOTE ---
DATE: 11/05/2018 INTERVAL HISTORY: No acute overnight events. Her blood pressure was 150-160 systolic most of the times. SUBJECTIVE: Patient denies any complaints. She is alert. However, she is not oriented. She is able to tell me that she came in because of a fall and had hit her head. VITAL SIGNS: Temperature 98.1 degrees, pulse 77, respiratory rate 18, blood pressure 150/48, saturating 97% on 2 L nasal cannula. PHYSICAL EXAMINATION: General: Does not appear in any acute distress. She has multiple camacho over her left-sided scalp, which is mildly tender. They are not oozing at the moment. She is able to move both upper extremities at elbow joint. Lungs: Air entry bilaterally equal. No wheeze, rhonchi, crackles. Cardiovascular: S1, S2 normal. No murmur, rub, or gallop. Abdomen: Soft, nontender. No lower extremity edema. She is able to wiggle the left foot without any trouble and intact neurovascular. She has intact dorsalis pedis pulses and she is able to feel my pinch. She is able to move right lower extremity more freely. She also has a cast of her left forearm involving the wrist joint. LABS: Today suggestive of microcytic anemia, normal platelet count. Her hemoglobin has slightly decreased. Normal kidney function. ASSESSMENT AND PLAN: 1. Mechanical fall, unwitnessed, leading to multiple injuries. 2. Left scalp laceration. 3. Fracture of left distal radius, left femoral neck displaced fracture, and persistent right humeral neck fracture. 4. History of dementia. 5. Essential hypertension. 6. Hyperlipidemia. 7. Chronic pain. PLAN: 1. I will continue patient's antihypertensive medication including metoprolol, amlodipine. I will add lisinopril after surgery. 2. I will continue home [place], escitalopram for chronic pain, and MiraLAX to avoid constipation. 3. Patient is likely to undergo left hip hemiarthroplasty by orthopedic surgery today and they have recommended casting of left distal radius fracture. 4. Plan of care discussed with the patient. Yesterday, I informed the patient's daughter about her medical condition and I will keep her updated. cc: Tyrese Carpio MD
[2018-11-05] MEDS: LOVENOX SUBQ SCH (14:01)
--- NOTE | 2018-11-05 14:32 | Diag Imaging Result Doc PS360 ---
EXAM: CHEST-1 VIEW HISTORY: REHAB TECHNIQUE: Chest single view 08/26/2018 COMPARISON: None. FINDINGS: The lungs are well expanded. There is pulmonary edema on the current exam. No consolidation. The heart is mildly prominent. No pleural effusions identified. IMPRESSION: Pulmonary edema. Electronically signed by Brian Kelley 11/05/2018 2:30 PM
[2018-11-05] MEDS ORDERED: DIPRIVAN 1% ONE (16:36)
[2018-11-05] MEDS ORDERED: XYLOCAINE-MPF 2% ONE ×2 (16:36→16:55)
[2018-11-05] MEDS ORDERED: QUELICIN (DOSE) ONE (16:36)
[2018-11-05] MEDS ORDERED: FENTANYL ONE ×2 (16:39→16:55)
[2018-11-05] MEDS ORDERED: SODIUM CHLORIDE 0.9% 10 ML ONE (16:49)
[2018-11-05] MEDS ORDERED: ROBINUL ONE ×3 (16:49→17:51)
[2018-11-05] MEDS ORDERED: KEFZOL 1 GM/D5W 1 GM/50 ML IVPB ONE (16:52)
[2018-11-05] MEDS ORDERED: VERSED ONE (16:55)
[2018-11-05] MEDS ORDERED: NEOSPORIN G.U. IRRIGANT ONE ×2 (17:01→18:19)
[2018-11-05] MEDS ORDERED: NEOSTIGMINE ONE (17:50)
[2018-11-05] MEDS ORDERED: MARCAINE 0.5% PF ONE (18:19)
[2018-11-05] MEDS ORDERED: ZOFRAN ONE (18:24)
[2018-11-05] MEDS ORDERED: NS 1,000 ML ONE (19:38)
--- NOTE | 2018-11-05 20:03 | Diag Imaging Result Doc PS360 ---
EXAM: HIP 1 VIEW LEFT INDICATION: Hemiarthroplasty TECHNIQUE: One view COMPARISON: 11/04/2018 FINDINGS: There has been a recent left hip arthroplasty. The arthroplasty hardware is in the expected position. There is no evidence of periprosthetic fracture. There are skin camacho at the lateral aspect of the hip. IMPRESSION: Satisfactory postoperative hip. Electronically signed by Homer Spann 11/05/2018 8:00 PM
--- NOTE | 2018-11-05 21:26 | OPERATIVE NOTE ---
PROCEDURE DATE: 11/05/2018 PREOPERATIVE DIAGNOSIS: 1. Left displaced femoral neck fracture. 2. Left distal radial fracture. POSTOPERATIVE DIAGNOSIS: 1. Left displaced femoral neck fracture. 2. Left distal radial fracture. PROCEDURE: 1. Hemiarthroplasty of left hip with a DePuy Corail size 12 press-fit stem, a 28 +1.5 femoral head, and a 28 x 46 bipolar head. 2. Open reduction, internal fixation left distal radius. SURGEON: Ahsan Jensen MD. OFFICE REP: BAILEY Jacobo SECOND BURRING MACHINE OPERATOR: Avery Saavedra RN. ANESTHESIA: General. IV FLUIDS: 900 mL of lactated Ringer's. ESTIMATED BLOOD LOSS: 55 mL. COMPLICATIONS: None. INDICATIONS: The patient is an 83-year-old female who is 2 days status post fall, sustaining a left distal radial fracture and a left displaced femoral neck fracture. The patient was admitted to the hospital and recommendation to proceed with hemiarthroplasty of the left hip and open reduction, internal fixation of the left distal radius. Risks and benefits of surgery were explained, including the risks of anesthesia, , bleeding, infection, failure to relieve pain, postoperative stiffness, nerve injury, blood clots, and other imponderables. All questions were answered and the patient and family wished to proceed with surgery. DETAILS OF OPERATION: The patient was taken to the operating room and underwent general anesthesia. After adequate anesthesia was obtained, patient was placed in a right lateral decubitus position on a live bag with an axillary roll. The left hip was subsequently prepped and draped in the usual sterile fashion. A standard lateral incision was made along the hip. Hemostasis was obtained using electrocautery. The gluteus aries and fascia brie were incised longitudinally. A Charnley retractor was placed. A #1 Vicryl was used as a stay suture in the piriformis tendon. The piriformis tendon along with short external rotators were elevated and retracted posteriorly. A T-shaped capsulotomy was then performed in the capsule. A #1 Vicryl was placed in each corner of the capsule. A corkscrew was then used to remove the femoral head. After this had been performed approximately 1 fingerbreadth proximal to the lesser trochanter, a resection of the femoral neck was conducted. Removal of the bone debris was then conducted. A starting reamer was then passed into the intramedullary canal. Sequential broaching was then performed up to size 12. It was countersunk a few millimeters. A calcar planer was then performed. After this had been performed, a trial neck and head length was then conducted and a 28 +1.5 femoral head with a 28 x 46 bipolar head were then reduced, carried through range of motion, and had excellent stability and range of motion. The trial components were then removed. Copious irrigation was then performed with antibiotic pulsatile lavage. A size 12 DePuy Corail press-fit stem was then impacted and had good fit. The 28 +1.5 femoral head with the 28 x 46 bipolar head were then placed on the stem. The hip was then reduced, carried through range of motion, and had good range of motion nd good stability. The wound was copiously irrigated with antibiotic pulsatile lavage. A #1 Vicryl was used to repair the posterior capsule as well as repair of the pyriformis tendon. The wound was copiously irrigated once again. Charnley retractor was then removed. A #1 Vicryl was used to repair the fascia brie and the gluteus aries in a running fashion. Final irrigation was then conducted. A 2-0 Vicryl was then used to repair subcutaneous tissue and skin with camacho. Adaptic, sterile 4 x 4's, ABD pad, and tape were applied to the left hip. The patient was then placed supinely on the table. The left upper extremity was subsequently prepped and draped in the usual sterile fashion. An Esmarch was used to exsanguinate the left upper extremity. The tourniquet was inflated to 250 mmHg. Attention was then turned to the volar aspect of the wrist and a volar approach to the hand was conducted. Careful dissection was performed through the deep soft tissue in the interval between the flexor carpi radialis and brachioradialis. The radial artery was identified and retracted radially. The pronator quadratus was elevated from radially and retracted ulnarly. Elevation was then conducted. The fracture site was then identified. After confirming good alignment with C-arm visualization, a Synthes volar column distal radial locking plate was then placed on the volar aspect of the distal radius. It was first secured with a bicortical screw proximal to the fracture site. Good position was confirmed with C-arm visualization. After this had been performed, the distal locking pegs were placed. Two locking screws were then placed in the most proximal 2 screw holes. The bicortical screw originally placed was exchanged for a locking screw. Final C-arm visualization revealed good alignment of the fracture and good position of the hardware. The wound was copiously irrigated. A 2-0 Vicryl was then used to repair subcutaneous tissue, followed by 4-0 nylon in an interrupted fashion. 0.5% Marcaine without epinephrine was injected locally. Adaptic, sterile 4 x 4's, Webril, and a volar splint were applied to the left upper extremity. The patient tolerated the procedure well and was transferred to the recovery room in stable condition. cc: Ahsan Jensen MD MTDRandy
[2018-11-05] MEDS ORDERED: MILK OF MAGNESIA PO PRN (22:07)
[2018-11-05] MEDS ORDERED: OXY IR PO PRN (22:07)
[2018-11-05] MEDS ORDERED: ZOFRAN IV PRN (22:07)
[2018-11-05] MEDS ORDERED: MORPHINE IV PRN (22:07)
[2018-11-05] MEDS ORDERED: TYLENOL PO SCH (22:15)
[2018-11-05] MEDS ORDERED: HALDOL IV PRN (22:15)
[2018-11-05] MEDS: LIPITOR PO SCH (23:40)
[2018-11-06] MEDS: KEFZOL 1 GM/D5W 1 GM/50 ML IVPB IV SCH ×2 (00:46→12:13)
[2018-11-06] MEDS: NORVASC PO SCH ×3 (03:53→23:11)
[2018-11-06] MEDS: NORCO-5 PO PRN ×3 (04:46→23:11)
[2018-11-06 06:10] LABS: HEMATOCRIT 25.1 % (37.0-47.0); HEMOGLOBIN 7.9 g/dL (12.0-16.0)
[2018-11-06 06:28] LABS: AGAP 9; BUN 13 mg/dL (8-22); CALCIUM 7.5 mg/dL (8.8-10.2); CHLORIDE 104 mmol/L (98-107); COSMO 272; CREATININE 0.6 mg/dL (0.5-0.9); ESTIMATED GFR > 60; GLUCOSE 126 mg/dL (70-104); POTASSIUM 3.6 mmol/L (3.5-5.1); SODIUM 135 mmol/L (136-145); TCO2 22 mmol/L (25-35)
[2018-11-06] MEDS ORDERED: TYLENOL PO PRN (07:57)
--- NOTE | 2018-11-06 12:06 | ORTHOPAEDICS PROGRESS NOTE ---
DATE: 11/06/2018 SUBJECTIVE: The patient is a pleasant, 83-year-old female who is 1 day status post hemiarthroplasty of left hip and open reduction and internal fixation of a left distal radial fracture. She is currently resting comfortably. OBJECTIVE: On physical examination of the patient's left upper extremity, her splint is intact. She has expected swelling in her fingers. Able to flex and extend her fingers. Has good capillary refill distally. Neurovascularly intact. Left hip dressing is intact. Calf is soft. She has active dorsiflexion and plantar flexion. Her hemoglobin is 7.9, hematocrit is 25.1. IMPRESSION: Postoperative day #1 status post hemiarthroplasty of left hip and open reduction and internal fixation of left distal radius. PLAN: At this point, we will begin mobilization with physical therapy with weightbearing as tolerated to the left lower extremity with a platform walker for left upper extremity. Consult manager social responsibility for discharge planning. cc: Ahsan Jensen MD
[2018-11-06] MEDS: NS 1,000 ML IV SCH ×2 (12:10→23:13)
[2018-11-06] MEDS: LOVENOX SUBQ SCH (12:11)
[2018-11-06] MEDS: TOPROL XL PO SCH (12:12)
[2018-11-06] MEDS: FERROUS SULFATE PO SCH (12:12)
[2018-11-06] MEDS: LEXAPRO PO SCH (12:13)
[2018-11-06] MEDS: MIRALAX PO SCH (12:13)
[2018-11-06] MEDS: PERIDEX MT SCH (12:16)
--- NOTE | 2018-11-06 15:52 | PROGRESS NOTE ---
DATE: 11/06/2018 INTERVAL HISTORY: Ms. Carvajal underwent left hip hemiarthroplasty and open reduction internal fixation of the left distal radius, which she tolerated well. Today she does have a drop in her hemoglobin. However, she is appearing hemodynamically stable. SUBJECTIVE: She is resting in the bed. Denies any complaints. Her brother and his friend are at bedside. Plan of care discussed with him. OBJECTIVE: Vital Signs: Temperature 98.6 degrees, pulse 76, respiratory rate 16, blood pressure 178/54, saturating 99% on 2 L nasal cannula. General: Lying down in the bed, not in acute distress. HEENT: Oral cavity is moist. No pallor, cyanosis, clubbing, or icterus. She has left-sided scalp camacho and L-shaped incision. Cardiovascular: S1, S2 normal. No murmur or gallop. Abdomen: Soft, nontender. Extremities: She is able to wiggle both upper and lower extremities. Her left upper extremity is in a bandage. No lower extremity edema. She has intact dorsalis pedis pulses bilateral lower extremities and intact sensation to touch. LABS: Suggestive of hemoglobin of 7.9. Normal electrolytes. MICROBIOLOGY: No data. IMAGING: No data. She did have hypertension with a systolic of 178/54. ASSESSMENT AND PLAN: 1. Unwitnessed mechanical fall leading to multiple injuries including left scalp laceration status post suturing in the emergency room with camacho, left distal radius fracture status post open reduction internal fixation, left femoral neck displaced fracture status post left hip hemiarthroplasty, persistent right femoral neck fracture managed conservatively. I will continue pain medications as per orthopedic doctor's recommendations. Continue DVT prophylaxis with enoxaparin. 2. Essential hypertension. I will continue her on amlodipine, metoprolol, and start her back on her home lisinopril. 3. Others. Continue home atorvastatin for hyperlipidemia, escitalopram which is her home medication, hydrocodone for chronic pain, on top of other pain medications. DISPOSITION: The patient remains inside the hospital as we are looking for rehab place. Whenever the rehab bed is available, we should be able to transfer her out. She also has acute blood loss anemia, likely because of blood loss during surgery and follow up with hemoglobin tomorrow. cc: Tyrese Carpio MD
[2018-11-06] MEDS: LIPITOR PO SCH (23:10)
[2018-11-06] MEDS: COLACE PO SCH (23:11)
[2018-11-07] MEDS: PERIDEX MT SCH ×2 (01:33→09:11)
[2018-11-07 06:09] LABS: HEMATOCRIT 22.7 % (37.0-47.0); HEMOGLOBIN 7.1 g/dL (12.0-16.0)
[2018-11-07 06:20] LABS: AGAP 7; BUN 18 mg/dL (8-22); CALCIUM 7.8 mg/dL (8.8-10.2); CHLORIDE 105 mmol/L (98-107); COSMO 275; CREATININE 0.6 mg/dL (0.5-0.9); ESTIMATED GFR > 60; GLUCOSE 119 mg/dL (70-104); POTASSIUM 3.9 mmol/L (3.5-5.1); SODIUM 136 mmol/L (136-145); TCO2 24 mmol/L (25-35)
[2018-11-07] MEDS: MIRALAX PO SCH (09:11)
[2018-11-07] MEDS: LEXAPRO PO SCH (09:11)
[2018-11-07] MEDS: FERROUS SULFATE PO SCH (09:11)
[2018-11-07] MEDS: PRINIVIL PO SCH (09:12)
[2018-11-07] MEDS: NORVASC PO SCH ×2 (09:12→23:18)
[2018-11-07] MEDS: TOPROL XL PO SCH (09:12)
--- NOTE | 2018-11-07 14:48 | Diag Imaging Result Doc PS360 ---
EXAM: CHEST-2 VIEWS HISTORY: Evaluat for pneumonia. TECHNIQUE: Chest two views COMPARISON: 11/05/2018 FINDINGS: The lungs are well expanded. The heart is not enlarged. The vessels remain mildly distended. There are no infiltrates. There are small pleural effusions. IMPRESSION: Mild improvement in the pulmonary edema. Electronically signed by Brian Kelley 11/07/2018 2:46 PM
--- NOTE | 2018-11-07 14:48 | PROGRESS NOTE ---
DATE: 11/07/2018 INTERVAL HISTORY: Ms. Carvajal had developed multiple spikes of fever with T-max of 102 degrees. SUBJECTIVE: At the time of my evaluation, patient is sitting in the chair. She denies any chest pain or shortness of breath. However, she does have memory impairment because of dementia and the history is not entirely reliable. OBJECTIVE: Vital signs: Temperature 98.8 degrees, pulse 86, respiratory rate 24, blood pressure 145/36, saturating 99% on 2 L nasal cannula. General: She does not appear in any acute distress. HEENT: Oral cavity is moist. Lungs: Air entry decreased in the left infrascapular region with inspiratory crackles. She also has inspiratory crackles in right infrascapular region. No wheeze or rhonchi. Cardiovascular: S1, S2 normal. No murmur, rub, or gallop. Abdomen: Soft, nontender. Extremities: No lower extremity edema. She is able to wiggle both upper and lower extremity fingers and toes. She has intact brachialis pulses, as well as dorsalis pedis pulses. Skin: She has camacho over the scalp, temporal region. The wound does not have any undue tenderness. LABS: Suggestive of decreasing hemoglobin to 7.1. Her WBC is 6.6. Normal electrolytes. Normal kidney function. MICROBIOLOGY: No new microbiological data. IMAGING: Chest x-ray has been requested; it is pending. Urinalysis also pending. ASSESSMENT AND PLAN: 1. Postoperative fever. Differential diagnosis includes pneumonia versus urinary tract infection. She does have cognitive impairment and may not contribute to history meaningfully. I will start her on intravenous levofloxacin and follow up with final chest x-ray and urinalysis results. My suspicion is she is developing left lower lobe pneumonia based on clinical exam. 2. Unwitnessed mechanical fall leading to multiple injuries including left scalp laceration status post suturing in the emergency room with camacho on, left distal radius fracture status post open reduction internal fixation on November 05, 2018, left femoral neck displaced fracture status post left hip hemiarthroplasty on November 05, persistent right humeral neck fracture managed conservatively. I will continue pain medications as per orthopedic doctor's recommendation and DVT prophylaxis with enoxaparin. She will need staple removal in about 10 days from her scalp and outpatient orthopedic followup. 3. Acute blood loss anemia related to surgery. I will continue to monitor CBC tomorrow and will transfuse if her hemoglobin drops to less than 7 or if she develops tachycardia or hypotension. 4. Essential hypertension. Continue current amlodipine, metoprolol, and lisinopril which is better controlling her blood pressure. 5. Others. Continue atorvastatin for hyperlipidemia; citalopram, which is her home medication. 6. Disposition. The patient has bed availability at rehab in [place]. I will await her to have 24 hours fever free episode and diagnosis of infection and then will plan discharging her accordingly. I am anticipating discharge in the next 24 to 48 hours, depending on her fever and hemoglobin. Plan of care discussed with the patient's [id number]. All of the questions have been satisfactorily answered. Yesterday I had discussed the plan with the patient's brother. cc: Tyrese Carpio MD
[2018-11-07 15:04] LABS: URINE SOURCE CATH
[2018-11-07] MEDS: LEVAQUIN 750 MG/D5W 750 MG/150 ML IVPB IV SCH (15:14)
[2018-11-07] MEDS: LOVENOX SUBQ SCH (15:15)
[2018-11-07 15:18] LABS: BILIRUBIN URINE NEGATIVE (NEGATIVE); BLOOD URINE SMALL (NEGATIVE); COLOR YELLOW; GLUCOSE URINE NEGATIVE (NEGATIVE); KETONE URINE NEGATIVE (NEGATIVE); LEUKOCYTES URINE TRACE (NEGATIVE); NITRITE URINE NEGATIVE (NEGATIVE); PH URINE 5.5; PROTEIN URINE 50 mg/dL (NEGATIVE); SP GRAVITY URINE 1.021; TURBIDITY URINE CLEAR (CLEAR); UROBILINOGEN URINE NORMAL (NORMAL)
[2018-11-07 15:19] LABS: UR EPITHELIAL CELLS <10 /HPF (<10); URINE BACTERIA NEGATIVE /HPF; URINE WBC <10 /HPF (<10)
[2018-11-07] MEDS: NS 1,000 ML IV SCH (17:11)
[2018-11-07] MEDS: NORCO-5 PO PRN (23:18)
[2018-11-07] MEDS: LIPITOR PO SCH (23:19)
[2018-11-07] MEDS: COLACE PO SCH (23:19)
[2018-11-08] MEDS: PERIDEX MT SCH ×2 (04:21→09:10)
[2018-11-08 06:33] LABS: BASO# 0.02 X1000 (0.0-0.2); BASO% 0.3 % (0.0-0.8); EOS# 0.11 X1000 (0.0-0.7); EOS% 1.5 % (0.0-10.0); HEMATOCRIT 21.8 % (37.0-47.0); HEMOGLOBIN 6.9 g/dL (12.0-16.0); LYMPH# 1.83 X1000 (1.2-3.4); LYMPH% 25.1 % (20.5-51.1); MCH 25.1 PG (27-31); MCHC 31.7 g/dL (33-37); MCV 79.3 FL (81-99); MONO% 12.4 % (1.7-9.3); MPV 11.7 FL (7.4-10.4); NEUT# 4.42 X1000 (1.4-6.5); NEUT% 60.7 % (42.2-75.2); PLT 243 X1000 (130-400); RBC 2.75 XMIL (4.2-5.4); WBC 7.28 X1000 (4.8-10.8)
[2018-11-08] MEDS: LEXAPRO PO SCH (09:10)
[2018-11-08] MEDS: MIRALAX PO SCH (09:11)
[2018-11-08] MEDS: TOPROL XL PO SCH (09:11)
[2018-11-08] MEDS: NORVASC PO SCH (09:11)
[2018-11-08] MEDS: PRINIVIL PO SCH (09:11)
[2018-11-08] MEDS: FERROUS SULFATE PO SCH (09:11)
--- NOTE | 2018-11-08 09:32 | ORTHOPAEDICS PROGRESS NOTE ---
DATE: 11/08/2018 SUBJECTIVE: The patient is a pleasant 83-year-old female, who is 3 days status post hemiarthroplasty right hip, and open reduction, internal fixation left distal radius. She is currently resting comfortably. OBJECTIVE: Extremities: On physical examination, the patient's left upper extremity splint is intact. She continues with swelling and appears able to flex/extend her fingers. She is grossly neurovascularly intact. In the left lower extremity dressing, her calf is soft. She has active dorsiflexion, plantar flexion. LABS: Her labs are pending. IMPRESSION: Postoperative day #3 status post hemiarthroplasty, left hip, and open reduction, internal fixation, left distal radius. PLAN: At this point, we will continue physical therapy with weightbearing as tolerated, left lower extremity, using a platform walker. The patient is stable from an orthopedic standpoint. cc: Ahsan Jensen MD
--- NOTE | 2018-11-08 11:22 | DISCHARGE SUMMARY ---
ADMISSION DATE: 11/03/2018 DISCHARGE DATE: 11/08/2018 LENGTH OF STAY: Four days. DISPOSITION: [facility]. FOLLOW UP: 1. Dr. Chuy Mcelroy. 2. Dr. Roshan Jensen. 3. The medical staff at [facility]. INVASIVE PROCEDURES DONE DURING THIS ADMISSION: Left hemiarthroplasty was done, as well as an open reduction and internal fixation of the left distal radius done by Dr. Jensen on 11/05/2018. IMAGING STUDIES OF SIGNIFICANCE: 1. X-ray of the wrist showed a fracture of the distal radius with concomitant osteoarthritis. 2. A CT scan of the head showed the left parietal scalp hematoma, chronic microvascular changes. 3. A knee x-ray showed no evidence of bony abnormality. 4. Hip x-ray showed fracture of the left femoral neck. 5. Shoulder x-ray showed worsened alignment of the humeral neck fracture. 6. Postop hip x-ray showed satisfactory postop hip. 7. A chest x-ray showed mild improvement in the pulmonary edema. ADMISSION DIAGNOSES: 1. Status post mechanical fall. 2. Left distal radius and left femoral neck fracture. 3. Left scalp laceration. 4. Hypertension. DIAGNOSES AT THE TIME OF DISCHARGE: 1. Status post mechanical fall resulting into a left distal radius fracture and a left femoral neck fracture. Both fractures were intervened upon by Dr. Jensen. 2. Anemia associated with acute blood loss. Patient's hemoglobin and hematocrit have dropped, so she was transfused. 3. Essential hypertension. 4. History of iron deficiency. 5. Dementia. 6. Postoperative fever with negative chest x-ray. Urinalysis is unremarkable. The patient was started on antibiotics due to concern for a pneumonia. PRESENTING COMPLAINT: Fall. HISTORY OF PRESENTING COMPLAINT: Ms. Carvajal is an 83-year-old female with multiple comorbidities, who apparently was said to have fallen down at her assisted living facility at [facility]. Was brought into the emergency department, was found to have a left distal radius fracture, and also a left hip fracture. Patient was evaluated by the orthopedics team as well, and she was subsequently admitted for further medical care. HOSPITAL COURSE: Ms. Carvajal was admitted to the medical floor. Was seen by Orthopedics. She was sent in for intervention. A left hemiarthroplasty was done and open reduction and internal fixation of the left distal radius fracture was also done by Dr. Jensen. Postoperatively, she continues to improve. She was seen on multiple occasions (at least 3 times) by physical therapy. Ms. Carvajal postop was slightly complicated by fever. She did have 2 days of fever. A urine culture was done which we are still pending. The patient also did have some crackles in the lower lungs, so she was started on IV antibiotics, and she was also started on incentive spirometer. This morning she is feeling a lot better. The brother was at the bedside as well as a male friend was also at the bedside at the time of the encounter Ms. Carvajal is clinically stable. She is going to be discharged in stable condition, and she is to follow up with Dr. Jensen in about to 2 to 3 weeks time and also with her primary care doctor. All the discharge instructions have been discussed with her, and with the family members at the bedside. Ms. Carvajal will be discharged today after the PRBC transfusion. TIME SPENT FOR DISCHARGE: 35 minutes. cc: MD Chuy Felder MD Robert S. Tapscott, MD
[2018-11-08] MEDS: LOVENOX SUBQ SCH (11:47)
[2018-11-08] MEDS: LEVAQUIN 750 MG/D5W 750 MG/150 ML IVPB IV SCH (17:11)
[2018-11-08] MEDS: NS 1,000 ML IV SCH (17:11)
[2018-11-08 17:57] VITALS: BP 132/40
== END 2018-11-08 18:49 | DRG 470 ==
LOC: ED 18:37 → 4N 11-04 03:02 → SUATTDRO 11-04 03:02
PROVIDERS: ATTEND Internal Medicine
CPT/HCPCS: 36430; 70450; 71010; 71020; 71045; 71046; 73030; 73100; 73110; 73500; 73501; 73502; 73562; 76000; 80048; 80053; 81001; 82948; 84134; 85014; 85018; 85025; 85048; 86850; 86900; 86901; 86920; 87088; 88305; 88311; 93005; 94761; 94799; 97110; 97162; 97530; 99285; A9270; J0330; J0690; J1650; J1956; J2250; J2405; J3010; J7030; P9016; S0020; XXXXX